=== PATIENT | female | born 1940 | race Caucasian/White ===

== ENCOUNTER → 2017-05-30 | Day surgery (SDC) | payer MEDICARE, OTHER ==
[~2017-05-30] MED LIST: APIX5TAB PO; ASPI81CH CHEW; BENA25CA4; DILA2TAB2 PO; HUMA50IN SQ; HYDR12.56 PO; LEVO.125 PO; LYRI100C PO; MEPERIDINE HCL 25 MG/ML VIAL IV ONE; METO100T9 PO; PROPOFOL 200 MG/20 ML AMP IV ONE; SODIUM CHLORIDE 0.9% 10 ML VIAL ONE
--- NOTE | 2017-05-31 22:53 | M6 ---
cc: Manisha QUIROS DATE 05/30/2017 1940 PROCEDURE Fluoroscopically guided injection neurolytic substance bilateral sacroiliac joints (3% phenol 1.5 mL) History and physical was completed and signed. Consent was signed. Procedure site was marked. Medications were listed and reconciled. Pain score was recorded. Allergies were noted. Time out was taken. Fluoroscopy time was recorded where applicable. Sedation was administered or directed by Dr. Quiros. The patient was given oxygen. The patient was monitored by a registered nurse. Total procedure time was greater than 15 minutes. IV was started, blood pressure cuff, pulse oximeter and EKG were applied. The patient was placed in the prone position on a Jovany table sedated with small amounts of propofol titrated to effect. Vital signs were monitored and remained stable throughout the procedure. Sacral area was prepped with alcohol and 10% Betadine solution and draped with sterile drapes. Fluoroscopy was used shooting from medial to lateral to clearly visualize the posterior joint line of the bilateral sacroiliac joints. Separate sterile 5-inch 22-gauge spinal needles were advanced into these joints under fluoroscopic guidance. There was negative aspiration for blood or any other type of fluid. At each location, the patient was given 1.5 mL of 3% phenol. Following this, the patient was taken to the recovery room with stable vital signs neurologically intact. MD MORGAN Loving/ /9:08 AM /10:52 PM
== END | disposition home or self-care (01) ==
LOC: PHSDC 07:18
PROVIDERS: ATTEND Pain Medicine Interventional Pain Medicine
DX: M54.5 Low back pain (principal)
CPT/HCPCS: 64640; 99152; J2175

== ENCOUNTER 2018-01-07 09:20 | Day surgery (SDC) | payer MEDICARE, OTHER ==
[~2018-01-07] VITALS: Ht 162.6 cm; Wt 117.5 kg
[~2018-01-07 09:20] MED LIST changes: +ASPI-516 CHEW; -ASPI81CH CHEW; -BENA25CA4; -DILA2TAB2 PO; +DULO1CAP3 PO; +EXENINJ SQ; -MEPERIDINE HCL 25 MG/ML VIAL IV ONE; -METO100T9 PO; +METO1TAB43 PO; +PRAV20TA2 PO; -PROPOFOL 200 MG/20 ML AMP IV ONE; -SODIUM CHLORIDE 0.9% 10 ML VIAL ONE; +VITA2000 PO
[2018-01-07] MEDS ORDERED: IOHEXOL 350 MG/ML 100 ML BTL (for Cath Lab) OTHER ONE (09:21)
[2018-01-07 10:15] VITALS: BP 120/68; PULSE 72; RESP 18; TEMP 97.6; O2SAT 95
[2018-01-07 10:29] LABS: AUTOMATED NEUTROPHIL # 7.1 TH/MM3 (1.8-7.7); BASOPHIL % 0.4 % (0.0-2.0); EOSINOPHIL # 0.1 TH/MM3 (0-0.4); EOSINOPHIL % 0.8 % (0.0-4.0); HEMATOCRIT 39.4 % (35.0-46.0); HEMOGLOBIN 13.1 GM/DL (11.6-15.3); LYMPH % 17.3 % (9.0-44.0); LYMPHOCYTE # 1.7 TH/MM3 (1.0-4.8); MEAN CELL VOLUME 89.9 FL (80.0-100.0); MEAN CORPUSCULAR HEMOGLOBIN 29.9 PG (27.0-34.0); MEAN CORPUSCULAR HGB CONC 33.3 % (32.0-36.0); MEAN PLATELET VOLUME 9.1 FL (7.0-11.0); MONO % 10.2 % (0.0-8.0); NEUT % 71.3 % (16.0-70.0); PLATELET COUNT 284 TH/MM3 (150-450); RED BLOOD COUNT 4.38 MIL/MM3 (4.00-5.30); RED CELL DISTRIBUTION WIDTH 14.4 % (11.6-17.2); WHITE BLOOD COUNT 9.9 TH/MM3 (4.0-11.0)
[2018-01-07 10:38] LABS: PROTHROMBIN TIME - PATIENT 10.2 SEC (9.8-11.6)
[2018-01-07] MEDS ORDERED: SODIUM CHLOR 0.9% 1000 ML INJ 1,000 ML IV SCH ×2 (10:45→18:00)
[2018-01-07] MEDS ORDERED: HYDROmorphone HCL PF 2 MG/ML VIAL IV PUSH ONE (11:15)
[2018-01-07 11:29] LABS: BICARBONATE 27.5 MEQ/L (21.0-32.0); CREATININE 1.28 MG/DL (0.50-1.00)
[2018-01-07] MEDS ORDERED: MIDAZOLAM HCL 2 MG/2 ML VIAL ONE (15:49)
[2018-01-07] MEDS ORDERED: HEPARIN-NS/PF FLUSH BAG 1,000 ML IV FLUSH ONE (15:50)
[2018-01-07] MEDS ORDERED: HYDROmorphone HCL PF 2 MG/ML VIAL ONE (15:54)
[2018-01-07] MEDS ORDERED: HEPARIN SODIUM - IV 10,000 UNITS/10 ML VIAL ONE (16:31)
[2018-01-07] MEDS ORDERED: CLOPIDOGREL 300 MG TAB ONE (16:58)
[2018-01-07] MEDS ORDERED: ONDANSETRON HCL 4 MG/2 ML VIAL ONE (17:08)
--- NOTE | 2018-01-07 17:28 | CATHPROC ---
[email or web address] HIS Report Study Information Study Number Admission Scheduled Start Study Start [id number] Jan 07 2018 9:20AM 01/07/2018 Jan 07 2018 3:30PM [place] Service Cath Endovascular Study Admit Source Facility Department Other [facility] - Molding Manager Physician and Clinical Staff Initial MD Shetty, Ant Pest Controller Miley Claudio,RAHAT Recorder Frida, Yaa,RED HAT ENGINEER TECH2 Scrub Cindy, Gareth,RT(R) Procedures Performed Procedure Location (Site) Vessel Name Angiogram (manual) Fem Sup. (right) Femoral Art Angiogram (manual) Popliteal R (R10) Popliteal SLOT MACHINE FLOOR PERSON Fem Sup. (left) Femoral Art Wire insertion Fem Art (right) Femoral Art Equipment Time Archives Director Description Size Mfg Part Number Used/Scraped [id number] 15:35 ANGIO-DYNAMICS OMNI FLUSH 65CM CATHETER FR 5 Used *[id number] BALLOON, 6.0 40MM [id number] 16:42 ANGIOSCORE INC. 6.0 40MM Used ANGIOSCULPT 137CM *[id number] INTRODUCER SET, 15:35 [employer]. FR 5 [id number] *[id number] Used MICROPUNCTURE, STIFFENED [id number] 16:59 DAIG/[employer]. YOUNG [employer]ICAL ANGIOSEAL, FR6 VIP FR 6 Used *[id number] BALLOON, ADMIRAL EXTREME 6 [id number] 16:49 [employer] 130CM Used X 120 130CM *[id number] CATHETER, FR5 TRAILBLAZER [id number] 16:37 [employer] 135CM Used .035 *[id number] 16:38 MALLINCKRODT SYRINGE, ANGIOMAT 150ML 150ML *[id number] Used 2SUB 16:41 [employer] WIRE, CONTROL V-18 300CM 72912 *[id number] Used [id number] 15:35 iRx Reminder IND[employer]ES PACK, CCL CUSTOM * Used *[id number] 16:58 Qian Xiao'er 30 ANN INDEFLATOR Used *[id number] 16:19 Qian Xiao'er PRESSURE TUBING 48" 48" [id number] 15:35 NYCOMED OMNIPAQUE, 300 MG, 150ML 150ML [id number] Used 15:35 [employer]ED OMNIPAQUE, 300 MG, 150ML 150ML [id number] Used [id number] 15:35 TERUMO MEDICAL SHEATH, FR5 TERUMO (10CM) FR 5 Used *[id number] 16:54 [employer]ICAL SHEATH, FR6 TERUMO (10CM) FR 6 Used *[id number] SHEATH, FR6 PINNACLE [id number] 16:34 TERUMO MEDICAL/CONG FR 6 Used DESTINATION 45CM *[id number] WIRE, ANGLE GLIDE STIFF .035 [id number] 16:36 TERUMO MEDICAL/CONG 260CM Used 260CM *[id number] WIRE, ANGLED GLIDE .035 [id number] 16:18 TERUMO MEDICAL/CONG 260CM Used 260CM *[id number] History: Allergies Allergy Reaction codeine Nausea/Vomiting morphine HALLUCINATIONS Phenergan Tachycardia promethazine Tachycardia History: Risk Factors Hypertension Dyslipidemia Previous RI Previous Heart Failure Yes Yes Yes Yes Prior PCI Yes Cerebrovascular Peripheral Artery Diabetes Disease Disease Yes Yes Yes History: Arrhythmias Selection Items Atrial fibrillation Labs Hgb (g/dl) Hct (%) RBC (MIL/MM3) WBC (l/cumm) Platelets (thousands) 11.60-17.00 35.00-51.00 4.00-5.90 4.00-11.00 150.00-450.00 13.1 39.4 4.3 9.9 284 Glucose (mg/dl) BUN (mg/dl) Creatinine (mg/dl) BUN:Creatinine (1:x) 74.00-106.00 7.00-18.00 0.50-1.30 10.00-20.00 179 21 1.2 17.5 Na (meq/l) K (meq/l) Cl (meq/l) CO2 (mmol/L) Ca (mg/dl) 136.00-145.00 3.50-5.10 98.00-107.00 21.00-32.00 8.50-10.10 137 3.5 101 27.5 9 PT (sec) INR (PTT:PT) 9.80-11.60 0.90-1.10 10.2 1 CPK-MB (ng/ML) 0.50-3.60 Not Drawn Medication Medication Total Dose (Bolus/Oral) Medication Total Dosage/Unit 1% XYLOCAINE 20 mL Dilaudid 1 mg HEPARIN 8300 units PLAVIX 600 mg VERSED 1 mg ZOFRAN 4 mg Medications (Bolus/Oral) Medication Time Given Dosage/Unit Administered By Reason Dilaudid 01/07/2018 3:57:49 PM 0.5 mg Hesher, Miley 0.5 mg Dilaudid given in lab by Miley Claudio RN in Left Forearm via Peripheral IV. Ordered by Ant Birch VERSED 01/07/2018 4:06:59 PM 0.5 mg Hesher, Miley 0.5 mg VERSED given in lab by Miley Claudio RN in Left Forearm via Peripheral IV. Ordered by Ant Boone Dilaudid 01/07/2018 4:07:08 PM 0.5 mg Hesher, Miley 0.5 mg Dilaudid given in lab by Miley Claudio RN in Left Forearm via Peripheral IV. Ordered by Ant Birch 1% XYLOCAINE 01/07/2018 4:08:58 PM 20 mL Ant Shetty 20 mL 1% XYLOCAINE given in lab by Ant Shetty in Right Groin via Subcutaneous. Ordered by Ant Lundy VERSED 01/07/2018 4:24:16 PM 0.5 mg Hesher, Miley 0.5 mg Dilaudid given in lab by Miley Claudio RN in Left Forearm via Peripheral IV. Ordered by Ant Birch HEPARIN 01/07/2018 4:33:54 PM 8300 units Hesher, Miley 8300 units HEPARIN given in lab by Miley Claudio RN in Left Forearm via Peripheral IV. Ordered by Ant Fitzpatrick ZOFRAN 01/07/2018 5:11:06 PM 4 mg Hesher, Miley 4 mg ZOFRAN given in lab by Miley Claudio RN in Left Forearm via Central IV. Ordered by Earl Shetty PLAVIX 01/07/2018 5:14:24 PM 600 mg González, Miley 600 mg PLAVIX given in lab by Miley Claudio RN via Oral. Ordered by Ant Shetty Medication (Drip) Medication Time Given Dosage/Unit Concentration/Unit Diluent (ml) Solution IV Solutions 01/07/2018 3:43:09 PM 0 mL (IV) 500 NaCl .9 Patient arrived on IV Solutions in Left Forearm via Peripheral IV. Pump/Drip Flow = 20 ml/hr using Na Cl .9. Ordered by Ant Shetty Initial Case Assessment Cardiovascular HR Rhythm NIBP Chest Pain 75 nsr 151/79 0 Edema Present Skin color Skin None Normal Warm Dry Circulatory - Right Pulses Dorsalis Pedis Posterior Tibial Femoral d d 1 Scale (0,1,2,3,4,d) Circulatory - Left Pulses Dorsalis Pedis Posterior Tibial Femoral d d 1 Scale (0,1,2,3,4,d) Neurological State Oriented to time-place- Alert Moves all extremities person Respiration - General Respiration Rate SpO2 (%) (B/min) 15 97 Final Case Assessment Cardiovascular HR Rhythm NIBP Chest Pain 76 sr 108/46 0 Edema Present Skin color Skin None Normal Warm Dry Circulatory - Right Pulses Dorsalis Pedis Posterior Tibial Femoral d d 1 Scale (0,1,2,3,4,d) Circulatory - Left Pulses Dorsalis Pedis Posterior Tibial Femoral d d 1 Scale (0,1,2,3,4,d) Circulatory - Lower Extremities Color Lower Right Color Lower Left Normal Normal Neurological State Oriented to time-place- Alert Moves all extremities person Respiration - General Respiration Rate SpO2 (%) O2 (lpm) (B/min) 14 94 2 Chronological Log Time Study Chronological Log 15:35:30 Patient arrived via Bed with blanchard catheter in place. 15:35:43 Patient Name, D.O.B, / Armband Verified By R.N. 15:36:28 Pre-op and post- op instructions given; patient acknowledges understanding of instructions. 15:40:37 Verbal Stimulation=2 Physical Stimulation=2 Airway=2 Respiration=2 TOTAL=8. (0=absent, 1=li mited, 2=present) Vitals capture started with the following parameters, Patient=Adult, Interval=5 min, Initial Pr iqxgeq=305 mmHg, 15:41:57 Deflation Rate=5 mmHg, Cuff placed on Right Ankle 15:42:56 Presedation assessment performed by Molding Manager RN. 15:42:59 Patient has been NPO for More than 6Hrs. 15:43:01 Skin Breakdown- rash right foot 15:43:05 Patient Warmer Placed on the Table. 15:43:08 A # 20 IV was noted in the Forearm (left). Grade = patent Patient arrived on IV Solutions in Left Forearm via Peripheral IV. Pump/Drip Flow = 20 ml/hr us ing NaCl .9. Ordered by 15:43:09 Ant Shetty 15:43:11 History and physical on the chart or being dictated. 15:43:17 HR=85 bpm, HECH=486/79 mmhg, SpO2=98.0 %, Resp=15 B/min, Pain=0, Mari=10, Collazo=2 Assessment: Initial Case, HR=75 BPM, Rhythm=nsr, UVYF=070/79 mmhg, Chest Pain=0, Edema=None, Co nayana=Normal, Skin = Warm, Dry Right Pulses: Wilfred Ped=d, Post Tib=d, Femoral=1 15:46:07 Left Pulses: Wilfred Ped=d, Post Tib=d, Femoral=1 Neurological: State=Alert, Ox3, JOY Respiration: Resp=15 B/min, SpO2=97 % 15:46:30 Reference ECG taken 15:47:33 HR=75 bpm, BSWG=156/79 mmhg, SpO2=98.0 %, Resp=12 B/min, Pain=0, Mari=10, Collazo=2 15:52:28 HR=78 bpm, LIED=606/76 mmhg, SpO2=97.0 %, Resp=11 B/min, Pain=0, Mari=10, Collazo=2 15:56:13 Bilateral groins prepped with 2% chlorhexidine, and draped after a 3 minute waiting time. 15:56:17 MD arrived. 15:56:20 Contrast Scanned 15:56:20 Immediate Presedation assesment performed by physician. 15:57:27 HR=82 bpm, WCUM=525/74 mmhg, SpO2=95.0 %, Resp=10 B/min, Pain=0, Mari=10, Collazo=2 15:57:49 0.5 mg Dilaudid given in lab by Miley Claudio RN in Left Forearm via Peripheral IV. Order ed by Ant Shetty 16:02:33 HR=83 bpm, WZES=287/64 mmhg, SpO2=97.0 %, Resp=14 B/min 16:02:58 Pressure channel 1 zeroed. Time Out. Correct patient, correct procedure, correct physician, power injector loaded with con trast with surgical team 16:06:05 present. Time Out Concurred by MD and individual staff in procedure. 16:06:59 0.5 mg VERSED given in lab by Miley Claudio, RAHAT in Left Forearm via Peripheral IV. Ordered by Ant Shetty 16:07:08 0.5 mg Dilaudid given in lab by Miley Claudio, RN in Left Forearm via Peripheral IV. Order ed by Ant Shetty 16:07:32 HR=82 bpm, BZTO=440/45 mmhg, SpO2=95.0 %, Resp=15 B/min 16:08:55 Case Start 20 mL 1% XYLOCAINE given in lab by Ant Shetty in Right Groin via Subcutaneous. Ordered by Diogenes 16:08:58 Ant Breaux 16:12:31 HR=72 bpm, YJNB=173/50 mmhg, SpO2=95.0 %, Resp=13 B/min 16:14:57 Access site was Right Femoral Artery. Ultrasound used A INTRODUCER SET, MICROPUNCTURE, STIFFENED FR 5 was advanced into the Fem Art (right) using the 16:16:20 Percutaneous technique. A SHEATH, FR5 TERUMO (10CM) FR 5 was exchanged in the Fem Art (right). This was necessary in or leonid to 16:16:27 accomodate a larger catheter. 16:16:43 An injection in the Fem Art (right) was made through the SHEATH, FR5 TERUMO (10CM) FR 5. 16:17:30 HR=73 bpm, NIBP=97/47 mmhg, SpO2=94.0 %, Resp=13 B/min Recorded Pressure: RFA, HR=72, Condition=Condition 1 16:19:18 (Right Femoral Artery) RFA 109/62/78 16:19:55 Fem Sup. (right) angiogram, manually injected. 16:21:18 Popliteal R (R10) angiogram, manually injected. 16:22:29 HR=75 bpm, NIBP=94/51 mmhg, SpO2=94 %, Resp=20 B/min 16:24:16 0.5 mg Dilaudid given in lab by Miley Claudio, RN in Left Forearm via Peripheral IV. Order ed by Ant Shetty 16:25:26 A WIRE, ANGLED GLIDE .035 260CM 260CM was inserted via Fem Art (right). A OMNI FLUSH 65CM CATHETER FR 5 was advanced over a wire. OMNIPAQUE, 300 MG, 150ML 150ML was us ed for 16:25:32 injections. 16:27:09 Left iliac cannulated. 16:27:28 HR=75 bpm, NIBP=90/53 mmhg, Resp=14 B/min 16:27:53 Wire removed 16:29:43 Through a OMNI FLUSH 65CM CATHETER FR 5, The Iliac L. Com. (L4) was injected with 5 cc's of contrast. 16:32:27 HR=74 bpm, TFSC=654/62 mmhg, SpO2=93.0 %, Resp=12 B/min 16:33:14 Catheter was removed A SHEATH, FR6 PINNACLE DESTINATION 45CM FR 6 was exchanged in the Fem Art (right). This was nec essary in 16:33:23 order to accomodate a larger catheter. 8300 units HEPARIN given in lab by Miley Claudio, RN in Left Forearm via Peripheral IV. Ordere d by Ant Shetty 16:33:54 G. A WIRE, ANGLE GLIDE STIFF .035 260CM 260CM was inserted via Fem Art (right). Advanced up and ov er to the left 16:35:44 iliac. A CATHETER, FR5 TRAILBLAZER .035 135CM was advanced over a wire. OMNIPAQUE, 300 MG, 150ML 150ML was 16:36:23 used for injections. 16:37:34 HR=74 bpm, NIBP=86/48 mmhg, SpO2=95 %, Resp=18 B/min 16:38:13 NIBP STAT measurement started. 16:38:42 HR=72 bpm, NIBP=97/42 mmhg, SpO2=94 %, Resp=20 B/min 16:39:59 The previous wire was exchanged for a WIRE, CONTROL V-18 300CM. 16:40:05 Catheter was removed A BALLOON, 6.0 40MM ANGIOSCULPT 137CM 6.0 40MM was inserted over WIRE, CONTROL V-18 300CM via t he Fem 16:40:17 Sup. (left). 16:42:19 In the Fem Sup. (left) a BALLOON, 6.0 40MM ANGIOSCULPT 137CM 6.0 40MM was inflated to 10 at ms for 30 seconds. 16:42:31 HR=74 bpm, NIBP=85/52 mmhg, SpO2=94.0 %, Resp=8 B/min 16:42:35 In the Fem Sup. (left) a BALLOON, 6.0 40MM ANGIOSCULPT 137CM 6.0 40MM was inflated to 10 at ms for 30 seconds. 16:43:11 In the Fem Sup. (left) a BALLOON, 6.0 40MM ANGIOSCULPT 137CM 6.0 40MM was inflated to 10 at ms for 30 seconds. 16:45:31 Balloon Removed. A BALLOON, ADMIRAL EXTREME 6 X 120 130CM 130CM was inserted over WIRE, CONTROL V-18 300CM via t he Fem 16:46:47 Sup. (left). 16:48:09 HR=72 bpm, NIBP=95/56 mmhg, SpO2=94.0 %, Resp=8 B/min 16:49:40 In the Fem Sup. (left) a BALLOON, ADMIRAL EXTREME 6 X 120 130CM 130CM was inflated to 8 ann s for 180 seconds. 16:51:53 Balloon Removed. 16:52:12 Wire removed 16:52:31 HR=76 bpm, YGZW=217/57 mmhg, SpO2=92.0 %, Resp=12 B/min, Pain=0, Mari=10, Collazo=2 16:53:28 Catheter was removed A SHEATH, FR6 TERUMO (10CM) FR 6 was exchanged in the Fem Art (right). This was necessary in or leonid to minimize 16:54:31 site leakage. 16:57:36 HR=73 bpm, VIOW=872/43 mmhg, SpO2=93.0 %, Resp=11 B/min, Pain=0, Mari=10, Collazo=2 16:58:55 ANGIOSEAL, FR6 VIP FR 6 placement in the Fem Art (right) Assessment: Final Case, HR=76 BPM, Rhythm=sr, GZEE=496/46 mmhg, Chest Pain=0, Edema=None, Color =Normal, Skin = Warm, Dry Right Pulses: Wilfred Ped=d, Post Tib=d, Femoral=1 Left Pulses: Wilfred Ped=d, Post Tib=d, Femoral=1 17:00:27 Lower Right Extremities: Color=Normal Lower Left Extremities: Color=Normal Neurological: State=Alert, Ox3, JOY Respiration: Resp=14 B/min, SpO2=94 %, O2=2 lpm 17:02:13 Sterile dressing applied to site 17:02:15 No case complications noted. 17:02:16 Cine recording checked. 17:02:20 Holding Area notified of successful intervention. 17:02:21 Bedside Report will be given. 17:02:35 HR=75 bpm, BWSI=995/46 mmhg, SpO2=94.0 %, Resp=11 B/min, Pain=0, Mari=10, Collazo=2 17:07:21 Vitals capture stopped. 17:10:57 Patient moved to stretcher 17:11:06 4 mg ZOFRAN given in lab by Miley Claudio, RAHAT in Left Forearm via Central IV. Ordered by Ant Shetty 17:14:24 600 mg PLAVIX given in lab by Miley Claudio, RN via Oral. Ordered by Ant Shetty 17:59:40 Case End End Study - Contrast Media Used In Study Contrast Total Opened (mL) Total Used (mL) Total Wasted (mL) Omnipaque 100 100 0 End Study - Maximum Contrast Load Max Contrast Load (mL) 491.7 End Study - Radiation Exposure Fluoro Time (minutes) 6.6 End Study - Patient Disposition Complications Transferred To Interventional Outcome No Molding Manager Holding successful
[2018-01-07] MEDS ORDERED: MISC INFORMATION XX ONE (18:00)
[2018-01-07] MEDS ORDERED: ONDANSETRON HCL 4 MG/2 ML VIAL IV PUSH PRN (18:15)
[2018-01-07 20:00] VITALS: PULSE 74
[2018-01-07 21:00] VITALS: PULSE 74
[2018-01-07] MEDS ORDERED: METOPROLOL SUCCINATE 50 MG PO SCH (21:00)
[2018-01-07] MEDS ORDERED: PRAVASTATIN SOD 20 MG TAB PO SCH (21:00)
[2018-01-07] MEDS: METOPROLOL SUCCINATE 50 MG EXTENDED RELEASE TAB PO SCH (21:00)
[2018-01-07] MEDS: PREGABALIN 100 MG CAP PO SCH (21:00)
[2018-01-07 22:00] VITALS: PULSE 76
[2018-01-07 23:00] VITALS: PULSE 78
[2018-01-07] MEDS ORDERED: CLOPIDOGREL 300 MG TAB PO ONE (23:00)
[2018-01-07] MEDS ORDERED: PROMETHAZINE HCL 25 MG TAB PO PRN (23:00)
[2018-01-08] VITALS: PULSE 78
[2018-01-08] MEDS: HYDROmorphone HCL PF 2 MG/ML VIAL IV PRN ×2 (00:21→10:10)
[2018-01-08 01:00] VITALS: PULSE 86
[2018-01-08] MEDS ORDERED: LEVOTHYROXINE SODIUM 125 MCG TAB PO SCH (06:00)
[2018-01-08 06:14] LABS: AUTOMATED NEUTROPHIL # 9.3 TH/MM3 (1.8-7.7); BASOPHIL # 0.1 TH/MM3 (0-0.2); BASOPHIL % 0.5 % (0.0-2.0); EOSINOPHIL # 0.1 TH/MM3 (0-0.4); EOSINOPHIL % 0.8 % (0.0-4.0); HEMATOCRIT 38.9 % (35.0-46.0); HEMOGLOBIN 12.7 GM/DL (11.6-15.3); LYMPH % 15.6 % (9.0-44.0); MEAN CELL VOLUME 90.4 FL (80.0-100.0); MEAN CORPUSCULAR HEMOGLOBIN 29.6 PG (27.0-34.0); MEAN CORPUSCULAR HGB CONC 32.7 % (32.0-36.0); MEAN PLATELET VOLUME 9.3 FL (7.0-11.0); MONO % 8.9 % (0.0-8.0); MONOCYTE # 1.1 TH/MM3 (0-0.9); NEUT % 74.2 % (16.0-70.0); PLATELET COUNT 278 TH/MM3 (150-450); RED CELL DISTRIBUTION WIDTH 14.4 % (11.6-17.2); WHITE BLOOD COUNT 12.5 TH/MM3 (4.0-11.0)
[2018-01-08 06:35] LABS: CALCIUM 9.1 MG/DL (8.5-10.1); CREATININE 1.35 MG/DL (0.50-1.00)
[2018-01-08] MEDS ORDERED: [UNRECOGNIZED DRUG - OTHER] SQ SCH (07:00)
[2018-01-08 08:00] VITALS: BP 145/88; PULSE 78; RESP 22; TEMP 98.3; O2SAT 96
[2018-01-08] MEDS ORDERED: ASPIRIN 81 MG CHEW TAB CHEW SCH (09:00)
[2018-01-08] MEDS ORDERED: CLOPIDOGREL 75 MG TAB PO SCH (09:00)
[2018-01-08] MEDS: PREGABALIN 100 MG CAP PO SCH (10:07)
[2018-01-08] MEDS: METOPROLOL SUCCINATE 50 MG EXTENDED RELEASE TAB PO SCH (10:08)
[2018-01-08 10:40] VITALS: RESP 18
[2018-01-08] MEDS ORDERED: PLAV75TA29 PO (10:50)
--- NOTE | 2018-01-08 13:45 | PD.CARD.PN ---
Subjective Subjective Remarks Chronic back pain Lower extremity pain less than before Objective Medications Current Medications Medications (Trade) Dose Ordered Sig/Isma Route Start Time Stop Time Status Last Admin Sodium Chloride 1,000 ml @ 30 mls/hr Q24H IV 01/07/18 10:45 01/09/18 10:44 (Plavix) 75 mg DAILY PO 01/08/18 09:00 01/08/18 10:08 (Aspirin Chew) 81 mg DAILY CHEW 01/08/18 09:00 01/08/18 10:07 (Synthroid) 125 mcg DAILY@0600 PO 01/08/18 06:00 (Pravachol) 20 mg HS PO 01/07/18 21:00 (Lyrica) 100 mg BID PO 01/07/18 21:00 01/08/18 10:07 Patient Own Medication PT OWN MED: (Insulin Lispro Protamine-Lis... BIDAC SQ 01/08/18 07:00 Future Hold (Roxicodone) 5 mg Q6H PRN PO 01/07/18 18:15 (Roxicodone) 10 mg Q6H PRN PO 01/07/18 18:15 01/08/18 05:26 (Zofran Inj) 4 mg Q6HR PRN IV PUSH 01/07/18 18:15 01/07/18 21:52 (Toprol Xl) 50 mg BID PO 01/07/18 21:00 01/08/18 10:08 (Phenergan) 50 mg Q4H PRN PO 01/07/18 23:00 (Dilaudid Pf Inj) 2 mg UNSCH X1 PRN IV 01/08/18 00:15 01/09/18 12:00 01/08/18 10:10 Vital Signs / I&O Vital Signs Date Time Temp Pulse Resp B/P (MAP) Pulse Ox O2 Delivery O2 Flow Rate FiO2 01/08/18 10:40 18 01/08/18 10:40 18 01/08/18 08:00 98.3 78 22 145/88 (107) 96 01/08/18 08:00 78 01/08/18 06:35 16 01/08/18 01:00 86 01/08/18 00:00 78 01/07/18 23:00 78 01/07/18 22:00 76 01/07/18 21:00 74 01/07/18 20:00 74 01/07/18 17:25 92 Nasal Cannula 2.00 I/O 01/07/18 01/07/18 01/07/18 01/08/18 01/08/18 01/08/18 07:00 15:00 23:00 07:00 15:00 23:00 Intake Total 480 ml Output Total 250 ml Balance 230 ml Intake Oral 480 ml Output Urine Total 250 ml Physical Exam GENERAL: AAOx3 SKIN: Warm and dry. HEAD: Atraumatic. Normocephalic. EYES: Pupils equal and round. No scleral icterus. No injection or drainage. ENT: No nasal bleeding or discharge. Mucous membranes pink and moist. NECK: Trachea midline. No JVD. CARDIOVASCULAR: Regular rate and rhythm. RESPIRATORY: No accessory muscle use. Clear to auscultation. Breath sounds equal bilaterally. GASTROINTESTINAL: Abdomen soft, non-tender, nondistended. Hepatic and splenic margins not palpable. MUSCULOSKELETAL: Extremities with bilateral chronic edema. Right groin no hematoma. Distal pulses intact NEUROLOGICAL: Awake and alert. No obvious cranial nerve deficits. Motor grossly within normal limits. Five out of 5 muscle strength in the arms and legs. Normal speech. PSYCHIATRIC: Appropriate mood and affect; insight and judgment normal. Laboratory Laboratory Tests Test 01/08/18 04:31 White Blood Count 12.5 TH/MM3 Red Blood Count 4.30 MIL/MM3 Hemoglobin 12.7 GM/DL Hematocrit 38.9 % Mean Corpuscular Volume 90.4 FL Mean Corpuscular Hemoglobin 29.6 PG Mean Corpuscular Hemoglobin Concent 32.7 % Red Cell Distribution Width 14.4 % Platelet Count 278 TH/MM3 Mean Platelet Volume 9.3 FL Neutrophils (%) (Auto) 74.2 % Lymphocytes (%) (Auto) 15.6 % Monocytes (%) (Auto) 8.9 % Eosinophils (%) (Auto) 0.8 % Basophils (%) (Auto) 0.5 % Neutrophils # (Auto) 9.3 TH/MM3 Lymphocytes # (Auto) 2.0 TH/MM3 Monocytes # (Auto) 1.1 TH/MM3 Eosinophils # (Auto) 0.1 TH/MM3 Basophils # (Auto) 0.1 TH/MM3 CBC Comment DIFF FINAL Differential Comment Blood Urea Nitrogen 20 MG/DL Creatinine 1.35 MG/DL Random Glucose 198 MG/DL Calcium Level 9.1 MG/DL Sodium Level 138 MEQ/L Potassium Level 3.8 MEQ/L Chloride Level 100 MEQ/L Carbon Dioxide Level 31.0 MEQ/L Anion Gap 7 MEQ/L Estimat Glomerular Filtration Rate 38 ML/MIN Assessment and Plan Problem List: (1) PAD (peripheral artery disease) ICD Codes: I73.9 - Peripheral vascular disease, unspecified (2) Claudication ICD Codes: I73.9 - Peripheral vascular disease, unspecified (3) Atrial fibrillation ICD Codes: I48.91 - Atrial fibrillation Status: Acute (4) Nausea & vomiting ICD Codes: R11.2 - Nausea & vomiting Status: Acute (5) Obstructive jaundice ICD Codes: K83.8 - Obstructive jaundice Status: Acute (6) Diabetes ICD Codes: E11.9 - Diabetes Status: Acute Assessment and Plan 1) PAD/Claudication s/p Angiosculpt and HARRY ISR of left SFA 2) AFib 3) Chronic back pain Follow up with pain management 4) Cardiovascularly stable for discharge ASA/Plavix/Eliquis for 1 month then back to ASA/Eliquis Ant Shetty DO Jan 08, 2018 13:45
--- NOTE | 2018-01-08 19:56 | EKG ---
Date Performed: 01/07/2018 Time Performed: 10:33:00 PTAGE: 77 years EKG: Probable normal Sinus rhythm Inferior infarct - age undetermined Nonspecific ST-T changes may be due to myocardial ischemia Basel ine artifact. Likely no significant change from previous tracing. Abnormal ECG PREVIOUS TRACING : 09/20/2014 18.12 DOCTOR: Elsy Bain Interpretating Date/Time 01/08/2018 19:55:37
--- NOTE | 2018-01-09 11:18 | MA ---
cc: ANT KANG DO DATE 01/07/2018 PROCEDURE Bilateral lower extremity peripheral angiogram, in-stent restenosis left SFA status post AngioSculpt balloon and drug-eluting balloon (6 x 120) therapy, ultrasound-guided access, femoral closure with Angio-Seal, moderate sedation 55 minutes. PREPROCEDURE DIAGNOSIS Claudication with left greater than right pain, peripheral artery disease, abnormal CTA with runoff. POSTPROCEDURE DIAGNOSIS Mild to moderate peripheral artery disease on the right lower extremity with three-vessel runoff, left lower extremity in-stent restenosis of SFA stent status post AngioSculpt and drug-eluting balloon therapy, distally two-vessel runoff. MEDICATIONS 1. Versed 0.5 mg. 2. Dilaudid 2 mg. 3. Heparin 8300 units. 4. Plavix 600 mg. 5. Zofran 4 mg. CONTRAST 100 cc FLUOROSCOPY 6.6 minutes ANESTHESIA Moderate sedation 55 minutes ESTIMATED BLOOD LOSS 10 cc PROCEDURAL SUMMARY Papa Tripp is a pleasant 77-year-old female who sees my partner Dr. Ramírez in the office and underwent CTA which showed significant possible disease in the right iliac, as well as in-stent restenosis of the left SFA. Because of this, she was recommended peripheral angiogram. In discussion with her, the risks, benefits and alternatives were explained to her and she consented as such. She was brought to lab and prepped in the usual sterile fashion. Right femoral artery was accessed using modified Seldinger technique as well as ultrasound guidance and placement of a 5-[place] sheath. This was easily aspirated and flushed. An angiogram of right [employer] runoff was done as well as distal DSA for the [id number] vessels. Angiogram was then done through the sheath for the right iliac. At this time, an Omni flush was taken up over the bifurcation of the iliacs with a Glidewire. This was used for angiography of the left lower extremity to the distal vessels. Because of the significance of disease with in-stent restenosis, as well as the patient's symptoms, I felt that the left SFA should be intervened on. At this time, a stiff glide wire was placed into the distal SFA. The Omni flush was removed. The 5-[place] sheath was removed and replaced with a 6 x 45 destination sheath. The patient was given heparin as an anticoagulant. A Trailblazer was then taken over the Glidewire and the Glidewire was exchanged for a V18. An AngioSculpt (6 x 40) was then used throughout the low stent for predilation. A drug-eluting [place] (6 x 120) was then used to cross the distance of the stent. Final angiogram shows no significant post stenosis with two-vessel runoff as before. Wire was removed. Destination sheath was then exchanged for a short 6-[place] with a repeat angiogram to visualize the bifurcation. At this point, an Angio-Seal was used for femoral arteriotomy closure. The patient left the radiographer cardiac catheterization cardiovascularly stable. FINDINGS Right lower extremity: Right iliac shows no significant disease. Right [employer] with no significant disease. Right SFA has mild to moderate disease throughout the midportion of up to 50%. Distal [id number] appears to have three-vessel runoff to the ankle. Left lower extremity: Left iliac with no significant disease. No significant disease throughout the [employer]. Left SFA stent has 80% restenosis. Distal to this, there is no significant disease. [id number]-ool-[id number], it appears that the anterior tibial probably occludes and there is two-vessel runoff to the ankle. IMPRESSION 1. Claudication left greater than right. 2. Peripheral artery disease as above, status post AngioSculpt and drug-eluting balloon therapy to left SFA in-stent restenosis. RECOMMENDATIONS 1. Ms. Tripp underwent PCI as above. She will be placed on aspirin and Plavix therapy. 2. Due to her atrial fibrillation, she will be continued on aspirin, Eliquis and Plavix therapy for one month and at that time Plavix can be stopped and she can be continued on her aspirin and Eliquis. 3. She will be watched overnight and if stable in the morning, discharged home for followup with Dr. Ramírez. Thank you for allowing me to see Papa Tripp. If there are any questions, please do not hesitate to call. Ant Kang DO VGP/DJL /11:27 PM /10:52 AM
== END 2018-01-08 15:14 | disposition home or self-care (01) ==
LOC: HDOC 09:20 → HDIC 09:21 → HCIS 19:15 → HDOC 01-08 15:14
PROVIDERS: ATTEND Nuclear Medicine Nuclear Cardiology
DX: I70.213 Atherosclerosis of native arteries of extremities with intermittent claudication, bilateral legs (principal); I48.91 Unspecified atrial fibrillation; I10 Essential (primary) hypertension; E11.9 Type 2 diabetes mellitus without complications; Z79.82 Long term (current) use of aspirin; Z79.02 Long term (current) use of antithrombotics/antiplatelets
CPT/HCPCS: 36247; 37224; 75625; 75716; 80048; 85025; 85610; 85730; 93005; 99152; 99153; C1725; C1751; C1769; C1893; C2623; G0269; J1170; J1644; J2250; J2405; J3010; Q9967

== ENCOUNTER 2018-03-29 07:47 | Inpatient (IN) | payer MEDICARE, OTHER ==
[2018-03-29] VITALS (15 sets, daily range): BP systolic 91–151; BP diastolic 58–94; PULSE 90–124; RESP 18–28; TEMP 97.3–98.6; O2SAT 95–98
[~2018-03-29] VITALS: Ht 162.6 cm; Wt 120.5 kg
[~2018-03-29 07:47] MED LIST changes: -DULO1CAP3 PO
[2018-03-29 08:43] LABS: AUTOMATED NEUTROPHIL # 8.9 TH/MM3 (1.8-7.7); BASOPHIL # 0.1 TH/MM3 (0-0.2); BASOPHIL % 0.7 % (0.0-2.0); EOSINOPHIL # 0.2 TH/MM3 (0-0.4); EOSINOPHIL % 1.4 % (0.0-4.0); HEMOGLOBIN 12.9 GM/DL (11.6-15.3); LYMPH % 17.8 % (9.0-44.0); LYMPHOCYTE # 2.2 TH/MM3 (1.0-4.8); MEAN CELL VOLUME 92.1 FL (80.0-100.0); MEAN CORPUSCULAR HEMOGLOBIN 29.8 PG (27.0-34.0); MEAN CORPUSCULAR HGB CONC 32.3 % (32.0-36.0); MEAN PLATELET VOLUME 9.9 FL (7.0-11.0); MONO % 8.4 % (0.0-8.0); NEUT % 71.7 % (16.0-70.0); PLATELET COUNT 257 TH/MM3 (150-450); RED BLOOD COUNT 4.34 MIL/MM3 (4.00-5.30); RED CELL DISTRIBUTION WIDTH 15.1 % (11.6-17.2); WHITE BLOOD COUNT 12.4 TH/MM3 (4.0-11.0)
--- NOTE | 2018-03-29 08:59 | RADRPT ---
EXAM DATE/TIME: 03/29/2018 08:27 [facility] COMPARISON: CHEST SINGLE AP, July 14, 2012, 23:51. INDICATIONS : Short of breath MEDICAL HISTORY : Stroke. Cardiovascular disease. SURGICAL HISTORY : None. ENCOUNTER: Initial ACUITY: 1 day PAIN SCORE: 4/10 LOCATION: chest FINDINGS: PA lateral views of the chest demonstrate moderate cardiomegaly, diffuse cephalization of pulmonary v asculature and diffuse bilateral interstitial prominence, new from prior exam. CONCLUSION: Radiographic findings compatible with congestive heart failure and pulmonary edema. Aide Gaitan MD on March 29, 2018 at 8:55 Board Certified Radiologist. This report was verified electronically.
[2018-03-29] MEDS ORDERED: diphenhydrAMINE HCL 50 MG/ML VIAL IV PUSH ONE (09:15)
[2018-03-29] MEDS: METOPROLOL TARTRATE 5 MG/5 ML VIAL IV PUSH PRN ×2 (09:15→10:25)
[2018-03-29] MEDS ORDERED: ORPHENADRINE INJ 60 MG/2 ML AMP IM ONE (09:15)
[2018-03-29 09:18] LABS: BICARBONATE 23.8 MEQ/L (21.0-32.0); CALCIUM 9.3 MG/DL (8.5-10.1); CREATININE 1.21 MG/DL (0.50-1.00)
[2018-03-29 09:19] LABS: TROPONIN I LESS THAN 0.02 NG/ML (0.02-0.05)
--- NOTE | 2018-03-29 09:26 | PD ---
HPI . Shortness of breath Chief Complaint: Respiratory Symptoms Time Seen by Provider: 08:57 Travel History International Travel<30 days: No Contact w/Intl Traveler<30days: No Traveled to known affect area: No History of Present Illness HPI Patient presents to us this morning with the chief complaint of shortness of breath. Onset was 2 weeks ago. Symptoms became acutely worse last night. Shortness of breath is exacerbated by laying down but not by exertion. She reports some associated left-sided chest discomfort this morning which she rates 5/10. She also reports associated diaphoresis "all night last night." Patient denies any previous similar history. She reports no known history of COPD or CHF. 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) Diabetes: Yes (TYPE 2 DIABETES) Patient Takes Glucophage: No Diminished Hearing: No Endocrine: Yes Gastrointestinal Disorders: Yes (UMBILICAL HERNIA) GERD: Yes Glaucoma: No Genitourinary: No Headaches: Yes Hepatitis: No Hiatal Hernia: No Heparin Induced Thrombocytopen: No Hypertension: Yes Immune Disorder: No Implanted Vascular Access Dvce: Yes Kidney Stones: No Medical other: No Musculoskeletal: Yes Neurologic: Yes (CVA-2 OR 3) Psychiatric: No Reproductive: No Respiratory: No Migraines: No Myocardial Infarction: Yes () Radiation Therapy: No Renal Failure: No Seizures: No Sickle Cell Disease: No Sleep Apnea: No Thyroid Disease: Yes (HYPO) Ulcer: No PNEUMOCCOCAL Vaccine (Year): 2 Menopausal: Yes : 4 Para: 4 Miscarriage: 0 : 0 Past Surgical History Abdominal Surgery: Yes (CHOLECYSTECTOMY) AICD: No Appendectomy: Yes Arteriovenous Shunt: No Body Medical Devices: LUMBAR HARDWARE, CARDIAC STENTS, CLUNEAL NERVE STIMULATOR Cardiac Surgery: Yes (3 CARDIAC STENTS;) Section: Yes Cholecystectomy: No Ear Surgery: No Endocrine Surgery: No Eye Surgery: Yes (BILAT CATARACT SURGERY) Genitourinary Surgery: No Gynecologic Surgery: Yes (HYSTERECTOMY; CSECTION) Hysterectomy: Yes Insulin Pump: No Joint Replacement: No Neurologic Surgery: Yes (CAROTID ENDARTARECTOMY) Oral Surgery: Yes (T & A) Pacemaker: No Thoracic Surgery: No Tonsillectomy: Yes Other Surgery: Yes (SARAH, APPENDECTOMY, TONSILLECTOMY, R CARATID ARTERY SX) Social History Alcohol Use: Yes (OCC) Tobacco Use: No (former) Substance Use: No Allergies-Medications (Allergen,Severity, Reaction): Coded Allergies: codeine (Unverified Allergy, Severe, Nausea/Vomiting, 02/26/18) promethazine (Unverified Allergy, Severe, Tachycardia, 02/26/18) morphine (Unverified Adverse Reaction, Severe, HALLUCINATIONS, 02/26/18) Reported Meds & Prescriptions Reported Meds & Active Scripts Active Reported Bydureon Inj (Exenatide) 2 Mg Vial 2 Mg SQ Q7D Vitamin D3 (Cholecalciferol) 2,000 Unit Cap 2,000 Units PO DAILY Pravastatin 20 Mg Tab 20 Mg PO HS Aspirin 81 Mg Chew 81 Mg CHEW DAILY Eliquis (Apixaban) 5 Mg Tab 5 Mg PO BID Lyrica (Pregabalin) 100 Mg Cap 100 Mg PO BID Hydrochlorothiazide 12.5 Mg Tab 12.5 Mg PO DAILY Metoprolol Succinate ER 24 HR (Metoprolol Succinate) 100 Mg Tab 50 Mg PO BID Synthroid (Levothyroxine Sodium) 125 Mcg Tab 125 Mcg PO DAILY Humalog Mix 50-50 Inj (Insulin Lispro Protamine-Lispro 50-50 Inj) 1,000 Unit/10 Ml Vial 40 Units SQ BIDAC Review of Systems Except as stated in HPI: all other systems reviewed are Neg General / Constitutional: Positive: Other (Diaphoresis), No: Fever, Chills Cardiovascular: Positive: Chest Pain or Discomfort Respiratory: Positive: Shortness of Breath Musculoskeletal: Positive: Edema (She reports chronic edema and states that it is no different today than usual) Physical Exam Narrative Vital Signs Date Time Temp Pulse Resp B/P (MAP) Pulse Ox O2 Delivery O2 Flow Rate FiO2 03/29/18 09:08 97 Nasal Cannula 2.00 03/29/18 09:08 18 97 Room Air 03/29/18 09:08 109 28 140/84 (102) 96 Nasal Cannula 2.00 03/29/18 08:14 119 18 96 Nasal Cannula 2.00 03/29/18 08:02 124 18 141/85 (103) 97 Nasal Cannula 2.00 5/13/18 07:50 97.3 113 24 138/94 (109) 96 GENERAL: Awake and alert and in no obvious distress. SKIN: warm/dry. The skin of her ankles and feet is thickened and scaly. HEAD: Normocephalic. Atraumatic. EYES: Pupils equal and round. No scleral icterus. No injection or drainage. ENT: No nasal bleeding or discharge. Mucous membranes pink and moist. NECK: Trachea midline. Full range of motion without pain.. CARDIOVASCULAR: Irregularly irregular rate and rhythm with a heart rate of about 130. RESPIRATORY: No accessory muscle use. Clear to auscultation. Breath sounds equal bilaterally. GASTROINTESTINAL: Abdomen soft. Nontender. Bowel sounds present. Nondistended. MUSCULOSKELETAL: No obvious deformities. Trace pretibial pitting edema. NEUROLOGICAL: Awake and alert. No obvious cranial nerve deficits. Motor grossly within normal limits. Normal speech. PSYCHIATRIC: Appropriate mood and affect; insight and judgment normal. Data Data Last Documented VS Vital Signs Date Time Temp Pulse Resp B/P (MAP) Pulse Ox O2 Delivery O2 Flow Rate FiO2 03/29/18 09:24 105 18 140/84 (102) 97 Nasal Cannula 2.00 03/29/18 07:50 97.3 Orders Orders Complete Blood Count With Diff (03/29/18 08:18) Basic Metabolic Panel (Bmp) (03/29/18 08:18) Chest, Pa & Lat (03/29/18 08:18) Iv Access Insert/Monitor (03/29/18 08:18) Ecg Monitoring (03/29/18 08:18) Oxygen Administration (03/29/18 08:18) Oximetry (03/29/18 08:18) Electrocardiogram (03/29/18 08:18) Ckmb (Isoenzyme) Profile (03/29/18 08:23) Troponin I (03/29/18 08:23) Metoprolol Tartrate Inj (Lopressor Inj) (03/29/18 09:00) B-Type Natriuretic Peptide (03/29/18 09:07) Diphenhydramine Inj (Benadryl Inj) (03/29/18 09:15) Orphenadrine Inj (Norflex Inj) (03/29/18 09:15) Furosemide Inj (Lasix Inj) (03/29/18 09:30) Nitroglycerin 2% Oint (Nitroglycerin 2% (03/29/18 09:30) Admit Order (Ed Use Only) (03/29/18 ) Hospitality Specialist / Telemetry CHARLA.[id number] (03/29/18 09:44) Vital Signs (Adult) Q4H (03/29/18 09:44) Diet Heart Healthy (03/29/18 Breakfast) Activity Oob With Assistance (03/29/18 09:44) Notify Dr: Other (03/29/18 09:44) Labs Laboratory Tests Test 03/29/18 08:22 White Blood Count 12.4 TH/MM3 Red Blood Count 4.34 MIL/MM3 Hemoglobin 12.9 GM/DL Hematocrit 40.0 % Mean Corpuscular Volume 92.1 FL Mean Corpuscular Hemoglobin 29.8 PG Mean Corpuscular Hemoglobin Concent 32.3 % Red Cell Distribution Width 15.1 % Platelet Count 257 TH/MM3 Mean Platelet Volume 9.9 FL Neutrophils (%) (Auto) 71.7 % Lymphocytes (%) (Auto) 17.8 % Monocytes (%) (Auto) 8.4 % Eosinophils (%) (Auto) 1.4 % Basophils (%) (Auto) 0.7 % Neutrophils # (Auto) 8.9 TH/MM3 Lymphocytes # (Auto) 2.2 TH/MM3 Monocytes # (Auto) 1.0 TH/MM3 Eosinophils # (Auto) 0.2 TH/MM3 Basophils # (Auto) 0.1 TH/MM3 CBC Comment DIFF FINAL Differential Comment Blood Urea Nitrogen 17 MG/DL Creatinine 1.21 MG/DL Random Glucose 289 MG/DL Calcium Level 9.3 MG/DL Sodium Level 139 MEQ/L Potassium Level 4.9 MEQ/L Chloride Level 104 MEQ/L Carbon Dioxide Level 23.8 MEQ/L Anion Gap 11 MEQ/L Estimat Glomerular Filtration Rate 43 ML/MIN Total Creatine Kinase 89 U/L Troponin I LESS THAN 0.02 NG/ML MDM Medical Decision Making Medical Screen Exam Complete: Yes Emergency Medical Condition: Yes Medical Record Reviewed: Yes (Medical history is significant for diabetes, peripheral arterial disease and intermittent atrial fibrillation. Her most recent rhythm documented here was a normal sinus rhythm in December.) Interpretation(s) EKG shows atrial fibrillation with a ventricular response of 140 Differential Diagnosis Differential diagnosis of dyspnea includes but is not limited to congestive heart failure, pneumonia, wheezing, pneumothorax, pulmonary embolism Narrative Course Patient presents with chief complaint of dyspnea. She is in atrial fibrillation with rapid ventricular response. Her usual underlying rhythm is sinus but she does have a history of intermittent atrial fibrillation. Metoprolol 5 mg IV every 5 minutes has been ordered to treat the rapid heart rate. Last Impressions Chest X-Ray 03/29/18 0818 Signed Impressions: Service Date/Time: Thursday, March 29, 2018 08:27 - CONCLUSION: Radiographic findings compatible with congestive heart failure and pulmonary edema. Aide Gaitan MD The chest x-ray was independently reviewed by me. Lasix and nitroglycerin have now been ordered. CBC & BMP Diagram 03/29/18 08:22 Calcium Level 9.3 Troponin less than 0.02 Critical Care Narrative Aggregate critical care time was 30 minutes. Time to perform other separately billable procedures was not included in the critical care time. My time did not include minutes spent treating any other patients simultaneously or on activities that did not directly contribute to the patient's treatment. The services I provided to this patient were to treat and/or prevent clinically significant deterioration due to AF with RVR, pulmonary edema I provided critical care services requiring my management, as noted below: Chart data review, documentation time, medication orders and management, vital sign assessments/reviewing monitor data, ordering and reviewing lab tests, ordering and interpreting/reviewing x-rays and diagnostic studies, care of the patient and discussion of the patient with the admitting physicians Diagnosis Primary Impression: Atrial fibrillation with rapid ventricular response Additional Impression: Pulmonary edema Qualified Codes: J81.0 - Acute pulmonary edema Admitting Information Admitting Physician Requests: Admit Condition: Stable Hermelinda Vogt MD March 29, 2018 09:26
[2018-03-29] MEDS ORDERED: FUROSEMIDE 40 MG/4 ML VIAL IV PUSH ONE (09:30)
[2018-03-29] MEDS ORDERED: NITROGLYCERIN 2% OINT 1 GM PACKET TOPICAL ONE (09:30)
--- NOTE | 2018-03-29 10:00 | HHI.HP ---
HPI Service Family Medicine Primary Care Physician No Primary Care Physician Admission Diagnosis AF with RVR, pulm edema Diagnoses: International Travel<30 Days: No Contact w/Intl Traveler<30days: No Known Affected Area: No History of Present Illness Patient is a 77-year-old female with a history of CAD, carotid artery stenosis, congestive heart failure, CVA, depression, type II diabetes, hypercholesterolemia, hypertension, hypothyroid, obesity, NJ, paroxysmal A. fib , peripheral vascular disease who presents with progressively worsening dyspnea. Patient reports that she started to feel some shortness of breath and dyspnea on exertion starting about 2 weeks ago. The symptoms became progressively worse over the past 2 weeks until she felt like she could not breathe last night. She reports that her dyspnea is worse with exertion, worse with lying flat. She reports 2 pillow orthopnea. She also reports an associated dry cough. She also presents with a complaint of left sided substernal chest pain that is worse with exertion. She denies any radiation of the pain. She reports night sweats. (Zohaib Barrett MD R2) Review of Systems Other Constitutional: No chills, fever, + fatigue. No dramatic weight changes or night sweats. ENT: Denies hearing loss or sore throat. Denies vision changes, eye pain, hearing changes, rhinorrhea, sore throat Denies sore throat, runny nose. EYES: No blurred vision or double vision. ENDO: No cold or heat intolerance. No polyuria, polydipsia RESPIRATORY: + dry cough, +SOB, +LUTZ HEART: + chest pain nut no palpitations. GI: Denies constipation, diarrhea, nausea, vomiting, black or bloody stools. No abdominal pain : No dysuria, hematuria MUSC: No joint pain or muscle aches. SKIN: No rashes or itching. NEURO: Denies any headaches, weakness, or paresthesias. PSYCH: Denies anxiety or depression. LYMPH: No new lumps or bumps. 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 Past Surgical History Angioplasty 2000 Appendectomy at 12 years old Back surgery in 2007 section at 20 years old Cholecystectomy Hysterectomy at 32 years old due to cancer RCA stent January 2012 Tonsillectomy as a child Reported Medications Reported Meds & Active Scripts Active Reported Bydureon Inj (Exenatide) 2 Mg Vial 2 Mg SQ Q7D Vitamin D3 (Cholecalciferol) 2,000 Unit Cap 2,000 Units PO DAILY Pravastatin 20 Mg Tab 20 Mg PO HS Aspirin 81 Mg Chew 81 Mg CHEW DAILY Eliquis (Apixaban) 5 Mg Tab 5 Mg PO BID Lyrica (Pregabalin) 100 Mg Cap 100 Mg PO BID Hydrochlorothiazide 12.5 Mg Tab 12.5 Mg PO DAILY Metoprolol Succinate ER 24 HR (Metoprolol Succinate) 100 Mg Tab 50 Mg PO BID Synthroid (Levothyroxine Sodium) 125 Mcg Tab 125 Mcg PO DAILY Humalog Mix 50-50 Inj (Insulin Lispro Protamine-Lispro 50-50 Inj) 1,000 Unit/10 Ml Vial 40 Units SQ BIDAC (Zohaib Barrett MD R2) Allergies: Coded Allergies: codeine (Unverified Allergy, Severe, Nausea/Vomiting, 02/26/18) promethazine (Unverified Allergy, Severe, Tachycardia, 02/26/18) morphine (Unverified Adverse Reaction, Severe, HALLUCINATIONS, 02/26/18) Active Ordered Medications Current Medications Medications (Trade) Dose Ordered Sig/Isma Route Start Time Stop Time Status Last Admin (Lopressor Inj) 5 mg Q5M PRN IV PUSH 03/29/18 09:00 03/29/18 10:25 (NS Flush) 2 ml BID IV FLUSH 03/29/18 21:00 (NS Flush) 2 ml UNSCH PRN IV FLUSH 03/29/18 10:15 (Lasix Inj) 40 mg BID@18 IVP 03/29/18 18:00 (KCl) 20 meq BID PO 03/30/18 09:00 (Aspirin) 325 mg NOW PO 03/29/18 11:00 03/30/18 10:59 03/29/18 11:52 (Tylenol) 650 mg Q6H PRN PO 03/29/18 11:00 (Colace) 100 mg BID PRN PO 03/29/18 11:00 (Xanax) 0.25 mg Q8H PRN PO 03/29/18 11:00 (Eliquis) 5 mg Q12H PO 03/29/18 11:00 03/29/18 11:52 (Aspirin Chew) 81 mg DAILY CHEW 03/30/18 09:00 (Vitamin D3) 2,000 units DAILY PO 03/29/18 11:00 03/29/18 11:52 (Microzide) 12.5 mg DAILY PO 03/29/18 11:00 03/29/18 11:51 (Synthroid) 125 mcg DAILY@0600 PO 03/29/18 11:00 03/29/18 11:51 (Pravachol) 20 mg HS PO 03/29/18 21:00 (Lyrica) 100 mg BID PO 03/29/18 11:00 03/29/18 11:52 (Toprol Xl) 50 mg BID PO 03/29/18 21:00 (D50w (Vial) Inj) 50 ml UNSCH PRN IV PUSH 03/29/18 11:00 (Glucagon Inj) 1 mg UNSCH PRN OTHER 03/29/18 11:00 (NovoLOG SUPPLEMENTAL SCALE) 1 ACHS SLIDING SCALE SQ 03/29/18 12:00 03/29/18 11:36 (Levemir Inj) 10 units Q12HR SQ 03/29/18 21:00 (Tylenol) 650 mg Q6H PRN PO 03/29/18 11:15 (Percocet 5-325 Mg) 1 tab Q6H PRN PO 03/29/18 11:15 (Percocet 10-325 Mg) 1 tab Q6H PRN PO 03/29/18 11:15 (Dilaudid Pf Inj) 0.5 mg Q3H PRN IV PUSH 03/29/18 11:15 03/29/18 14:27 (Narcan Inj) 0.4 mg UNSCH PRN IV PUSH 03/29/18 11:15 (Zofran Odt) 4 mg Q6H PRN PO 03/29/18 11:15 Family History CAD in brother and sister CVA in sister Type 2 diabetes in brother and sister Social History Occasional alcohol use Completed some high school Retired Sedentary Former tobacco smoker started 37 (Zohaib Barrett MD R2) Physical Exam Vital Signs Vital Signs Date Time Temp Pulse Resp B/P (MAP) Pulse Ox O2 Delivery O2 Flow Rate FiO2 03/29/18 09:24 105 18 140/84 (102) 97 Nasal Cannula 2.00 03/29/18 09:08 97 Nasal Cannula 2.00 03/29/18 09:08 18 97 Room Air 03/29/18 09:08 109 28 140/84 (102) 96 Nasal Cannula 2.00 03/29/18 08:14 119 18 96 Nasal Cannula 2.00 03/29/18 08:02 124 18 141/85 (103) 97 Nasal Cannula 2.00 03/29/18 07:50 97.3 113 24 138/94 (109) 96 Physical Exam GENERAL: Awake and alert and in no obvious distress. SKIN: warm/dry. The skin of her ankles and feet is thickened and scaly with dry flaky skin. There is also erythema of her feet up to her ankles, right greater than left, clearly demarcated without any associated warmth. HEAD: Normocephalic. Atraumatic. EYES: Pupils equal and round. No scleral icterus. No injection or drainage. ENT: No nasal bleeding or discharge. Mucous membranes pink and moist. NECK: Trachea midline. Full range of motion without pain. CARDIOVASCULAR: Tachycardic rate and Irregularly irregular rhythm with a heart rate of about 100-110. RESPIRATORY: No accessory muscle use. Decreased breath sounds at the bases, but otherwise clear to auscultation. GASTROINTESTINAL: Abdomen soft. Nontender. Bowel sounds present. Nondistended. MUSCULOSKELETAL: 1+ pitting edema BL. No obvious deformities. See skin above for foot exam. NEUROLOGICAL: Awake and alert. No obvious cranial nerve deficits. Motor grossly within normal limits. Normal speech. PSYCHIATRIC: Appropriate mood and affect; insight and judgment normal. Laboratory Laboratory Tests Test 03/29/18 08:22 White Blood Count 12.4 Red Blood Count 4.34 Hemoglobin 12.9 Hematocrit 40.0 Mean Corpuscular Volume 92.1 Mean Corpuscular Hemoglobin 29.8 Mean Corpuscular Hemoglobin Concent 32.3 Red Cell Distribution Width 15.1 Platelet Count 257 Mean Platelet Volume 9.9 Neutrophils (%) (Auto) 71.7 Lymphocytes (%) (Auto) 17.8 Monocytes (%) (Auto) 8.4 Eosinophils (%) (Auto) 1.4 Basophils (%) (Auto) 0.7 Neutrophils # (Auto) 8.9 Lymphocytes # (Auto) 2.2 Monocytes # (Auto) 1.0 Eosinophils # (Auto) 0.2 Basophils # (Auto) 0.1 CBC Comment DIFF FINAL Differential Comment Blood Urea Nitrogen 17 Creatinine 1.21 Random Glucose 289 Calcium Level 9.3 Sodium Level 139 Potassium Level 4.9 Chloride Level 104 Carbon Dioxide Level 23.8 Anion Gap 11 Estimat Glomerular Filtration Rate 43 Total Creatine Kinase 89 Troponin I LESS THAN 0.02 (Zohaib Barrett MD R2) Result Diagram: 03/29/1882103/29/18821 Imaging Last Impressions Chest X-Ray 03/29/18817 Signed Impressions: Service Date/Time: Thursday, March 29, 2018 08:27 - CONCLUSION: Radiographic findings compatible with congestive heart failure and pulmonary edema. Aide Gaitan MD Course In the emergency department, patient had EKG, chest x-ray, BMP, CBC, troponin, CK-MB, metoprolol tartrate 5 mg IV push every 5 minutes, BNP, Norflex IM, Benadryl IV, nitroglycerin ointment, Lasix IV. (Zohaib Barrett MD R2) Caprini VTE Risk Assessment Caprini VTE Risk Assessment: Mod/High Risk (score >= 2) Caprini Risk Assessment Model Point Value = 1 Point Value = 2 Point Value = 3 Point Value = 5 Age 41-60 Minor surgery BMI > 25 kg/m2 Swollen legs Varicose veins or History of unexplained or recurrent spontaneous Oral contraceptives or hormone replacement Sepsis (< 1 month) Serious lung disease, including pneumonia (< 1 month) Abnormal pulmonary function Acute myocardial infarction Congestive heart failure (< 1 month) History of inflammatory bowel disease Medical patient at bed rest Age 61-74 Arthroscopic surgery Major open surgery (> 45 min) Laparoscopic surgery (> 45 min) Malignancy Confined to bed (> 72 hours) Immobilizing plaster cast Central venous access Age >= 75 History of VTE Family history of VTE Factor V Leiden Prothrombin [id number] Lupus anticoagulant Anticardiolipin antibodies Elevated serum homocysteine Heparin-induced thrombocytopenia Other congenital or acquired thrombophilia Stroke (< 1 month) Elective arthroplasty Hip, pelvis, or leg fracture Acute spinal cord injury (< 1 month) Prophylaxis Regimen Total Risk Factor Score Risk Level Prophylaxis Regimen 0-1 Low Early ambulation 2 Moderate Order ONE of the following: *Sequential Compression Device (SCD) *Heparin 5000 units SQ BID 3-4 Higher Order ONE of the following medications: *Heparin 5000 units SQ TID *Enoxaparin/Lovenox 40 mg SQ daily (WT < 150 kg, CrCl > 30 mL/min) *Enoxaparin/Lovenox 30 mg SQ daily (WT < 150 kg, CrCl > 10-29 mL/min) *Enoxaparin/Lovenox 30 mg SQ BID (WT < 150 kg, CrCl > 30 mL/min) AND/OR *Sequential Compression Device (SCD) 5 or more Highest Order ONE of the following medications: *Heparin 5000 units SQ TID (Preferred with Epidurals) *Enoxaparin/Lovenox 40 mg SQ daily (WT < 150 kg, CrCl > 30 mL/min) *Enoxaparin/Lovenox 30 mg SQ daily (WT < 150 kg, CrCl > 10-29 mL/min) *Enoxaparin/Lovenox 30 mg SQ BID (WT < 150 kg, CrCl > 30 mL/min) AND *Sequential Compression Device (SCD) (Zohaib Barrett MD R2) Assessment and Plan Assessment and Plan Patient is a 77-year-old female with a history of CAD, carotid artery stenosis, congestive heart failure, CVA, depression, type II diabetes, hypercholesterolemia, hypertension, hypothyroid, obesity, [place], paroxysmal A. fib , peripheral vascular disease who presents with progressively worsening dyspnea , found to have pulmonary edema consistent with acute on chronic CHF exacerbation and A. fib with RVR. Code Status Full code (Zohaib Barrett MD R2) Attending Attestation THIS CASE WAS DISCUSSED WITH THE RESIDENT PHYSICIANS. I HAVE REVIEWED THE RECORD AND AGREE WITH THE ABOVE NOTE AND PLAN OF CARE WAS DISCUSSED. I HAVE AUTHORIZED THE ORDER FOR ADMISSION TO AN IN-PATIENT STATUS. (Lisa Briseno MD) Problem List: (1) Pulmonary edema ICD Codes: J81.1 - Chronic pulmonary edema Status: Acute Plan: pulmonary edema consistent with acute on chronic CHF exacerbation -Admit to inpatient -Lasix 40 mg IV twice daily -Diabetic diet with 2L fluid and 2g sodium restrictions -Daily weight -Monitor vital signs -Monitor I's and O's -Continue home medication of metoprolol succinate ER 50 mg p.o. 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 -Aspirin 325 mg p.o. now -ACS rule out with q. 6 hour EKG and troponin -Continue home medication of statin, beta-william -Patient with allergy to morphine requested Dilaudid. Ordered Tylenol, Percocet , hydromorphone for breakthrough pain. (3) Atrial fibrillation with rapid ventricular response ICD Codes: I48.91 - Unspecified atrial fibrillation Status: Acute Plan: Patient with history of paroxysmal A. fib. Patient received IV metoprolol in the emergency department. -Continue home medication of metoprolol ER 50 mg p.o. twice daily for rate control -Continue home medication of Eliquis 5 mg p.o. every 12 hours (4) Diabetes ICD Codes: E11.9 - Diabetes Status: Acute Plan: Patient takes 40 units twice daily before meals of insulin lispro protamine-lispro 50-50. She also takes exenatide 2 mg subcu q. 7 days -Cut home insulin dose in half for long-acting insulin dose of Levemir 10 units subcu every 12 hours -Low sliding scale insulin -Hypoglycemia protocol ordered (5) Hypertension ICD Codes: I10 - Essential (primary) hypertension Plan: -Continue home medication of metoprolol succinate ER 24 hours 50 mg p.o. twice daily -Continue home medication of hydrochlorothiazide 12.5 mg p.o. daily (6) Hypercholesteremia ICD Codes: E78.00 - Pure hypercholesterolemia, unspecified Plan: -Continue home medication of pravastatin 20 g p.o. nightly (7) Chronic back pain ICD Codes: M54.9 - Dorsalgia, unspecified; G89.29 - Other chronic pain Plan: -Replaced patient's home medication of OxyContin Contin 10 mg p.o. every 8 hours (8) Neuropathy ICD Codes: G62.9 - Polyneuropathy, unspecified Plan: -Continue patient's home medication of Lyrica 100 mg p.o. twice daily (9) Hypothyroidism ICD Codes: E03.9 - Hypothyroidism, unspecified Plan: -Continue patient's home medication of levothyroxine 125 mcg p.o. daily (10) Vitamin D deficiency ICD Codes: E55.9 - Vitamin D deficiency, unspecified Plan: -Continue patient's home medication of cholecalciferol 2000 units p.o. daily (11) No contraindication to deep vein thrombosis (DVT) prophylaxis ICD Codes: Z78.9 - Other specified health status Plan: -Patient already on Eliquis -Continue home medication of Eliquis 5 mg p.o. every 12 hours (12) Nutrition, metabolism, and development symptoms ICD Codes: R63.8 - Other symptoms and signs concerning food and fluid intake Plan: Fluids: Held for CHF exacerbation, volume overload Electrolytes: Monitor and replete Nutrition: Diabetic diet with 2 L fluid restriction, 2 g sodium restriction GI prophylaxis: Not currently indicated (Zohaib Barrett MD R2) Physician Certification 2 Midnight Certification Type: Admission for Inpatient Services Order for Inpatient Services The services are ordered in accordance with Medicare regulations or non- Medicare payer requirements, as applicable. In the case of services not specified as inpatient-only, they are appropriately provided as inpatient services in accordance with the 2-midnight benchmark. Estimated LOS (days): 2 2 days is the estimated time the patient will need to remain in the hospital, assuming treatment plan goals are met and no additional complications. Post-Hospital Plan: Not yet determined (Zohaib Barrett MD R2) 2 Midnight Certification Type: Admission for Inpatient Services Post-Hospital Plan: Home (Lisa Briseno MD) Problem Qualifiers (1) Pulmonary edema: Qualified Codes: J81.0 - Acute pulmonary edema Zohaib Barrett MD R2 March 29, 2018 10:00 Lisa Briseno MD March 30, 2018 12:20
[2018-03-29] MEDS ORDERED: ACETAMINOPHEN 325 MG TAB PO PRN ×2 (11:00→11:15)
[2018-03-29] MEDS ORDERED: GLUCAGON 1 MG/ML VIAL OTHER PRN (11:00)
[2018-03-29] MEDS ORDERED: DOCUSATE SODIUM 100 MG CAP PO PRN (11:00)
[2018-03-29] MEDS ORDERED: ALPRAZolam 0.25 MG TAB PO PRN (11:00)
[2018-03-29] MEDS ORDERED: DEXTROSE 50% IN WATER 50 ML VIAL(D50) IV PUSH PRN (11:00)
[2018-03-29] MEDS ORDERED: ASPIRIN 325 MG TAB PO SCH (11:00)
[2018-03-29] MEDS ORDERED: ONDANSETRON HCL 4 MG/2 ML VIAL IV PUSH PRN (11:00)
[2018-03-29] MEDS ORDERED: OXYC-103 PO (11:05)
[2018-03-29] MEDS ORDERED: ONDANSETRON ODT 4 MG TAB PO PRN (11:15)
[2018-03-29] MEDS ORDERED: HYDROmorphone HCL PF 0.5 MG/0.5 ML SYRINGE IV PUSH ONE (11:15)
[2018-03-29] MEDS ORDERED: NALOXONE HCL 0.4 MG/ML AMP IV PUSH PRN (11:15)
[2018-03-29] MEDS ORDERED: oxyCODONE/ACETAMINOPHEN 5 MG/325 MG TAB PO PRN (11:15)
[2018-03-29] MEDS: INSULIN ASPART SUPPLEMENTAL SCALE SQ SCH ×3 (11:36→20:31)
[2018-03-29] MEDS: HYDROCHLOROTHIAZIDE 12.5 MG CAP PO SCH (11:51)
[2018-03-29] MEDS: LEVOTHYROXINE SODIUM 125 MCG TAB PO SCH (11:51)
[2018-03-29] MEDS: APIXABAN 5 MG TABLET PO SCH ×2 (11:52→22:17)
[2018-03-29] MEDS: PREGABALIN 100 MG CAP PO SCH ×2 (11:52→20:20)
[2018-03-29] MEDS: CHOLECALCIFEROL (VIT D3) 1000 UNIT TAB PO SCH (11:52)
[2018-03-29] MEDS: HYDROmorphone HCL PF 0.5 MG/0.5 ML SYRINGE IV PUSH PRN ×3 (14:27→22:17)
--- NOTE | 2018-03-29 17:04 | EKG ---
Date Performed: 03/29/2018 Time Performed: 08:08:24 PTAGE: 77 years EKG: ATRIAL FIBRILLATION WITH RAPID VENTRICULAR RESPONSE BORDERLINE RIGHT AXIS DEVIATION INFERIO R MYOCARDIAL INFARCTION ABNORMAL ECG PREVIOUS TRACING : 03/29/2018 08.07 Compared to previous tracing, SR no longer present DOCTOR: Angella Gruber Interpretating Date/Time 03/29/2018 17:02:58
[2018-03-29] MEDS: FUROSEMIDE 40 MG/4 ML VIAL IVP SCH (17:15)
[2018-03-29] MEDS: PRAVASTATIN SOD 20 MG TAB PO SCH (20:20)
[2018-03-29] MEDS: oxyCODONE/ACETAMINOPHEN 10 MG/325 MG TAB PO PRN (20:20)
[2018-03-29] MEDS: SODIUM CHLORIDE 0.9% FLUSH 10 ML FLUSH IV FLUSH SCH (20:21)
[2018-03-29] MEDS: INSULIN DETEMIR 100 UNITS/ML VIAL SQ SCH (20:21)
[2018-03-29] MEDS: METOPROLOL SUCCINATE 50 MG EXTENDED RELEASE TAB PO SCH (20:31)
[2018-03-30] VITALS (21 sets, daily range): BP systolic 115–159; BP diastolic 68–94; PULSE 84–124; RESP 18–22; TEMP 97.3–98.3; O2SAT 96–100
[2018-03-30] MEDS: HYDROmorphone HCL PF 0.5 MG/0.5 ML SYRINGE IV PUSH PRN ×4 (05:01→19:23)
[2018-03-30] MEDS: LEVOTHYROXINE SODIUM 125 MCG TAB PO SCH (05:01)
[2018-03-30 07:20] LABS: HEMATOCRIT 40.3 % (35.0-46.0); HEMOGLOBIN 13.2 GM/DL (11.6-15.3); MEAN CELL VOLUME 92.4 FL (80.0-100.0); MEAN CORPUSCULAR HEMOGLOBIN 30.2 PG (27.0-34.0); MEAN CORPUSCULAR HGB CONC 32.6 % (32.0-36.0); MEAN PLATELET VOLUME 9.5 FL (7.0-11.0); PLATELET COUNT 223 TH/MM3 (150-450); RED BLOOD COUNT 4.36 MIL/MM3 (4.00-5.30); RED CELL DISTRIBUTION WIDTH 14.8 % (11.6-17.2); WHITE BLOOD COUNT 9.5 TH/MM3 (4.0-11.0)
[2018-03-30 07:36] LABS: BICARBONATE 28.7 MEQ/L (21.0-32.0); CALCIUM 9.5 MG/DL (8.5-10.1); CREATININE 1.58 MG/DL (0.50-1.00)
[2018-03-30] MEDS: INSULIN ASPART SUPPLEMENTAL SCALE SQ SCH ×4 (08:00→23:28)
[2018-03-30] MEDS: PREGABALIN 100 MG CAP PO SCH ×3 (08:40→23:41)
[2018-03-30] MEDS: POTASSIUM CHLORIDE 20 MEQ CONTROLLED RELEASE TAB PO SCH ×2 (08:40→23:20)
[2018-03-30] MEDS: HYDROCHLOROTHIAZIDE 12.5 MG CAP PO SCH (08:40)
[2018-03-30] MEDS: CHOLECALCIFEROL (VIT D3) 1000 UNIT TAB PO SCH (08:40)
[2018-03-30] MEDS: METOPROLOL SUCCINATE 50 MG EXTENDED RELEASE TAB PO SCH ×2 (08:40→23:20)
[2018-03-30] MEDS: ASPIRIN 81 MG CHEW TAB CHEW SCH (08:40)
[2018-03-30] MEDS: FUROSEMIDE 40 MG/4 ML VIAL IVP SCH (08:41)
[2018-03-30] MEDS: SODIUM CHLORIDE 0.9% FLUSH 10 ML FLUSH IV FLUSH SCH ×2 (08:41→23:22)
[2018-03-30] MEDS: INSULIN DETEMIR 100 UNITS/ML VIAL SQ SCH ×2 (08:42→23:27)
[2018-03-30] MEDS ORDERED: FUROSEMIDE 20 MG/2 ML VIAL IV PUSH ONE (09:15)
--- NOTE | 2018-03-30 10:48 | RADRPT ---
EXAM DATE/TIME: 03/30/2018 09:41 [facility] COMPARISON: CHEST PA & LAT, March 29, 2018, 8:27. INDICATIONS : Short of Breath MEDICAL HISTORY : Stroke. Cardiovascular disease. SURGICAL HISTORY : None. ENCOUNTER: Subsequent ACUITY: 2 days PAIN SCORE: 4/10 LOCATION: chest FINDINGS: PA and lateral views of the chest demonstrate the lungs to be mildly hyperinflated without evidence o f mass, infiltrate or effusion. The cardiomediastinal contours are unremarkable. Surgical clips rig ht neck. Osseous structures are intact. CONCLUSION: Mild hyperinflation without failure. Darwin Reece MD FACR on March 30, 2018 at 10:44 Board Certified Radiologist. This report was verified electronically.
[2018-03-30] MEDS: oxyCODONE/ACETAMINOPHEN 10 MG/325 MG TAB PO PRN ×2 (11:09→23:19)
[2018-03-30] MEDS: RESP: ALBUTEROL 2.5 MG/IPRATROPIUM 0.5 MG NEB (SCH) NEB ×3 (11:09→21:34)
[2018-03-30] MEDS: APIXABAN 5 MG TABLET PO SCH ×2 (11:12→23:20)
[2018-03-30] MEDS: PETROLATUM 30 GM TUBE TOPICAL SCH ×2 (12:20→23:22)
--- NOTE | 2018-03-30 13:57 | HHI.FPPN ---
Addendum to progress note ADDENDUM Reason for addendum: Additonal documentation Additional information please see resident H and P for further documentation of the patients history. Patient was admitted for increasing SOB felt to be due to CHF exacerbation. Pt reports she is not much better since admission. She reports continued SOB and some substernal CP. She states she is also having some issues with swallowing and feels like she is having a hard time swallowing. She is eating and drinking coffee at the time of the exam without much difficulty. Last Impressions Chest X-Ray 03/30/18 0000 Signed Impressions: Service Date/Time: Friday, March 30, 2018 09:41 - CONCLUSION: Mild hyperinflation without failure. Darwin Reece MD FACR Vital Signs Date Time Temp Pulse Resp B/P (MAP) Pulse Ox O2 Delivery O2 Flow Rate FiO2 03/30/18 12:55 114 03/30/18 12:50 18 03/30/18 11:13 98 Nasal Cannula 2.00 03/30/18 11:10 97.8 130/68 (88) Laboratory Tests Test 03/29/18 17:17 03/29/18 23:11 03/30/18 06:34 Troponin I LESS THAN 0.02 NG/ML LESS THAN 0.02 NG/ML White Blood Count 9.5 TH/MM3 Red Blood Count 4.36 MIL/MM3 Hemoglobin 13.2 GM/DL Hematocrit 40.3 % Mean Corpuscular Volume 92.4 FL Mean Corpuscular Hemoglobin 30.2 PG Mean Corpuscular Hemoglobin Concent 32.6 % Red Cell Distribution Width 14.8 % Platelet Count 223 TH/MM3 Mean Platelet Volume 9.5 FL Blood Urea Nitrogen 24 MG/DL Creatinine 1.58 MG/DL Random Glucose 222 MG/DL Calcium Level 9.5 MG/DL Sodium Level 137 MEQ/L Potassium Level 4.2 MEQ/L Chloride Level 98 MEQ/L Carbon Dioxide Level 28.7 MEQ/L Anion Gap 10 MEQ/L Estimat Glomerular Filtration Rate 32 ML/MIN Current Medications Medications (Trade) Dose Ordered Sig/Isma Route PRN Reason Start Time Stop Time Status Last Admin Dose Admin Metoprolol Tartrate (Lopressor Inj) 5 mg Q5M PRN IV PUSH HR > 100 03/29/18 09:00 03/29/18 10:25 Diphenhydramine HCl (Benadryl Inj) 25 mg ONCE ONCE IV PUSH 03/29/18 09:15 03/29/18 09:39 DC 03/29/18 09:23 Orphenadrine Citrate (Norflex Inj) 60 mg ONCE ONCE IM 03/29/18 09:15 03/29/18 09:39 DC 03/29/18 09:23 Furosemide (Lasix Inj) 40 mg ONCE ONCE IV PUSH 03/29/18 09:30 03/29/18 09:39 DC 03/29/18 09:28 Nitroglycerin (Nitroglycerin 2% Oint) 1 inch ONCE ONCE TOPICAL 03/29/18 09:30 03/29/18 09:39 DC 03/29/18 09:28 Current Medications Medications (Trade) Dose Ordered Sig/Isma Route PRN Reason Start Time Stop Time Status Last Admin Dose Admin Metoprolol Tartrate (Lopressor Inj) 5 mg Q5M PRN IV PUSH HR > 100 03/29/18 09:00 03/29/18 10:25 O. CONSTITUTIONAL/GEN: normally nourished, in mild resp distress. She is having a little trouble getting through long sentances without having to stop for air. She is also a little shakey sounding in her voice. EYES: conjunctiva normal, anicteric ENT: Mouth and pharynx normal. LUNGS: decreased breath sounds throughout, no overt wheezing, she is moving air , mild basilar crackles CARDIOVASCULAR: irr irr GI/ABD: soft without masses, without organomegaly. : no CVA tenderness NEURO: No focal deficits. She is sitting on the edge of the bed and able to move around during the exam without any issues SKIN: bilateral feet and ankles with scaling, erythematous skin, cool to touch but sensation intact HEME/LYMPH: no bruising, petechia or significant adenopathy MUSC: back is normal in appearance. Extremities are normal in appearance. PSYCH/MENTAL STATUS: Alert and oriented x 3. AP 1. SOB/CP/LUTZ -- ACS rule out was negative. Possible acute on chronic CHF exacerbation. Not a lot of diuresis occurred overnight and the patient is not clinically much better. Add additional 20mg IV lasix, check echocardiogram. Consider aortic dissection -- will check aortogram. Also consider PE -- patient is on eliquis already but certainly at risk for PE. Her renal Cr is up today to 1.53 so do not want to get two contrast studies done. Will check the aortogram, consider PE workup with CTA if still clinically relevant when the patients renal function improves. Due to all her other comorbidities and with the CHF exacerbation feel D-Dimer and VQ scan will be very low yield and impossible to interpret so will not order those at this time. Patient with h/ o smoking in the past as well. Will start her on duo-nebs and see if that helps her symptoms. Further testing and treatment based on the results of the above ordered tests and her clinical picture today. Consider cardiology consult if the patient does not clinically improve. With the patient history of all of her vascular issues and co-morbid conditions she is at high risk for complications, etc. 2. Dysphagia -- this is a pretty vague complaint and the patient is actively eating and drinking while we are in the exam room today. Will ask speech therapy to do a swallow evaluation. 3. Afib -- her pulse has remained reasonable in the 90-low 100 on her home metoprolol -- will monitor but continue home meds for now. 4. Other chronic disease -- home meds, stable, continue current management. Patient seen and dw the resident team -- Dr. Ramirez, Dr. Barrett, Dr. Danielle Briseno,Lisa Smith MD March 30, 2018 13:57
[2018-03-30] MEDS ORDERED: IODIXANOL 320 MG/ML 50 ML VIAL (for Rad CT) IVCONTRAST ONE (16:42)
--- NOTE | 2018-03-30 16:57 | RADRPT ---
EXAM DATE/TIME: 03/30/2018 15:51 [place] COMPARISON: No previous studies available for comparison. INDICATIONS : Aortic dissection, back pain IV CONTRAST: 50 cc Visipaque (iodixanol) IV RADIATION DOSE: 10.10 CTDIvol (mGy) MEDICAL HISTORY : Hypertension. Cardiovascular disease Carotid endarterectomy, diabetes, endometrial cancer, cervical c ancer SURGICAL HISTORY : Hysterectomy. ENCOUNTER: Initial ACUITY: 1 day PAIN SCALE: 3/10 LOCATION: Aorta TECHNIQUE: Volumetric scanning was performed using a multi-row detector CT scanner. The data was post processed with a variety of visualization algorithms including full volume maximum intensity projection, multi -planar sliding thin slab reformation, curved planar reformation, and surface rendering techniques. Using automated exposure control and adjustment of the mA and/or kV according to patient size, radiat ion dose was kept as low as reasonably achievable to obtain optimal diagnostic quality images. DICOM format image data is available electronically for review and comparison. FINDINGS: LUNGS: There are no suspicious lung lesions identified. Minimal pleural thickening is present on the right. MEDIASTINUM: No abnormally enlarged lymph nodes by CT criteria. No axillary or hilar abnormalities are identified. Moderate coronary calcifications are present in including the LAD and circumflex. There is no mavis cardial effusion. ABDOMEN: The liver and spleen are free of focal defects. The gallbladder and pancreas demonstrate no abnormali ty. The adrenal glands are normal. The kidneys demonstrate no evidence of solid renal mass or hydrone phrosis. No free fluid or abdominal masses are identified. No para-aortic adenopathy is seen. Midlin e abdominal hernia is present containing bowel without obvious incarceration. Transverse fixation lo wer lumbar spine The Spinal stimulator evident. PELVIS: No evidence of free fluid or pelvic mass. No abnormally enlarged inguinal or retroperitoneal lymph no olga lidia are present. The bladder is unremarkable. THORACIC AORTA: The thoracic aortic root is normal with normal branching of the great vessels. There is no evidence of aneurysm or dissection. ABDOMINAL AORTA: The aorta is normal in caliber without aneurysm or dissection. Densely calcified and nondilated abdo casper aorta is noted. Dense calcification is present at the level renal arteries. SMA and celiac ar e patent. PELVIC VESSELS: Moderate aortoiliac disease is present. Extraocular and common femorals are patent. CONCLUSION: 1. Negative for aneurysm or dissection 2. Moderate coronary calcifications without pleural effusion 3. Mild cardiomegaly with trace effusion on the right 4. Spinal stimulator 5. Transpedicular lumbar fixation 6. No inflammatory changes in the chest or abdomen. Darwin Reece MD FACR on March 30, 2018 at 16:50 Board Certified Radiologist. This report was verified electronically.
--- NOTE | 2018-03-30 18:06 | MB ---
cc: Praful Baum MD, Joshua A MD DATE: 03/30/2018 REASON FOR CONSULTATION: Congestive heart failure, atrial fibrillation, chest pain. CHIEF COMPLAINT: Chest pain. HISTORY OF PRESENT ILLNESS: The patient is a 77-year-old white female, followed in our office by Dr. Armen Ramírez, with a history of multiple medical problems including coronary artery disease, diabetes, carotid disease, peripheral vascular disease, history of congestive heart failure, hypertension, paroxysmal atrial fibrillation, who presented to the hospital with a 2 week history of increasing shortness of breath. She was found to be in congestive heart failure, as well as atrial fibrillation with a rapid ventricular response. In the last 2 weeks she has also had 2 pillow orthopnea as well as occasional paroxysmal nocturnal dyspnea. She reports no change in chronic intermittent pedal edema. Over the last 4 or 5 days, she has also had intermittent episodes of substernal chest discomfort described as "pressure" occasionally radiating directly through to her back, associated with diaphoresis, without nausea or increased shortness of breath. The patient also denies palpitations, dizziness, syncope, near syncope, recent flu symptoms. The chest pains have never lasted more than a few minutes, and have had no definite relationship to exertion. PAST MEDICAL HISTORY: 1. Coronary artery disease apparently status post stenting of the right coronary a few years ago. Her last heart catheterization was 02/24/2014 showing a totally occluded but well collateralized right coronary artery and mild disease of the left coronary system. 2. Carotid disease with apparently chronically occluded left internal carotid artery. She is also status post CVA in 2011. 3. Possible history of congestive heart failure in 2010. 4. Diabetes. 5. Hyperlipidemia. 6. Hypertension. 7. Hypothyroidism. 8. Peripheral vascular disease with history of left superficial femoral artery stenting. On 01/07/2018 she underwent angioplasty of in-stent restenosis of the left superficial femoral artery stent using a drug-eluting balloon by Dr. Ant Shetty. 9. Remote history of uterine cancer. 10. Paroxysmal atrial fibrillation. CARDIAC MEDICATIONS AT HOME: 1. Pravastatin 20 mg at bedtime. 2. Aspirin 81 mg daily. 3. Eliquis 5 mg b.i.d. 4. Metoprolol succinate 100 mg daily. 5. Hydrochlorothiazide 12.5 mg daily. ALLERGIES: CODEINE. PROMETHAZINE. MORPHINE. FAMILY HISTORY: Noncontributory. SOCIAL HISTORY: The patient quit smoking in the 1950s. She denies alcohol abuse. REVIEW OF SYSTEMS: As in the History Of Present Illness, otherwise negative or noncontributory. She also denies headache, abdominal pain, melena, diarrhea, bright red blood per rectum, fevers. PHYSICAL EXAMINATION: VITAL SIGNS: Blood pressure 141/80 with a pulse of 90, respirations 20. GENERAL: She is a well-developed, well-nourished white female, in no acute distress. NECK: Jugular venous pressure is difficult to assess. Carotid pulses are 2+ bilaterally and without bruits. CHEST: Clear lung rey HEART: She has an irregularly irregular rhythm without definite S3 or murmur. ABDOMEN: On abdominal examination, she has a soft, obese, nontender abdomen. Bowel sounds are present. There is no definite hepatosplenomegaly. EXTREMITIES: Reveals no clubbing or cyanosis. There is trace pretibial edema bilaterally. EKG shows atrial fibrillation, inferior wall infarct, age undetermined, diffuse nonspecific ST and T-wave abnormalities. LABORATORY DATA: Normal CBC. Potassium 4.2, BUN 24, creatinine 1.58. Negative cardiac enzymes. Chest x-ray from today shows no acute disease. Chest x-ray from 03/29/2018 shows congestive heart failure. IMPRESSION: Congestive heart failure, somewhat atypical chest pains, recurrent atrial fibrillation with a rapid ventricular response in this 77-year-old white female with a history of multiple medical problems including coronary artery disease, carotid disease, peripheral vascular disease, diabetes, hypertension, paroxysmal atrial fibrillation. Her chest x-ray today shows resolution of the pulmonary edema seen on admission chest x-ray. Echocardiogram is pending. The precipitating factor for the congestive heart failure may be the atrial fibrillation. At this time, she remains in atrial fibrillation, although with much better heart rates. Overall, there is no definite evidence for acute coronary syndrome. Cardiac enzymes are negative for myocardial infarction. She has had some atypical chest discomforts the last 4-5 days. EKG shows nonspecific ST and T-wave abnormalities. RECOMMENDATIONS: 1. Await the 2-D echo. 2. Continue the metoprolol. 3. As she has had some increase in her renal indices, and her latest chest x-ray shows clearing of the pulmonary edema, would change intravenous Lasix to oral administration. 4. Check a Lexiscan nuclear stress test to assess her chest pains. 5. Continue anticoagulation therapy for her atrial fibrillation. 6. Consider an atrial fibrillation ablation procedure in the future. MD ERIC Rascon/ZENOBIA , 05:31 PM , 06:05 PM CRISTIAN
--- NOTE | 2018-03-30 20:01 | EKG ---
Date Performed: 03/29/2018 Time Performed: 16:05:14 PTAGE: 77 years EKG: Atrial fibrillation Consider Inferior infarct - age undetermined Anterolateral ST-T changes are nonspecific Abnormal ECG PREVIOUS TRACING : 03/29/2018 08.08.24 DOCTOR: Ronald Rocha Interpretating Date/Time 03/30/2018 20:00:09
--- NOTE | 2018-03-30 20:01 | EKG ---
Date Performed: 03/29/2018 Time Performed: 21:39:18 PTAGE: 77 years EKG: Atrial fibrillation Consider Inferior infarct - age undetermined Anterolateral T wave morales es are nonspecific Abnormal ECG PREVIOUS TRACING : 03/29/2018 16.05 DOCTOR: Ronald Rcoha Interpretating Date/Time 03/30/2018 20:00:27
[2018-03-30] MEDS: PRAVASTATIN SOD 20 MG TAB PO SCH (23:19)
[2018-03-30] MEDS ORDERED: PREGABALIN 25 MG CAP PO ONE (23:30)
[2018-03-30] MEDS ORDERED: PREGABALIN 75 MG CAP PO ONE (23:30)
[2018-03-31] VITALS (12 sets, daily range): BP systolic 103–142; BP diastolic 62–85; PULSE 83–126; RESP 17–20; TEMP 97.3–98; O2SAT 93–97
[2018-03-31] MEDS: HYDROmorphone HCL PF 0.5 MG/0.5 ML SYRINGE IV PUSH PRN ×4 (01:43→20:41)
[2018-03-31] MEDS: SODIUM CHLORIDE 0.9% FLUSH 10 ML FLUSH IV FLUSH PRN ×2 (01:43→04:57)
[2018-03-31 04:49] LABS: BACTERIA, URINE FEW /hpf; BILIRUBIN, URINE NEG (NEG); BLOOD, URINE NEG (NEG); GLUCOSE,URINE NEG (NEG); HYALINE CAST, URINE 2 /lpf (RARE); KETONE, URINE NEG (NEG); MUCUS URINE FEW /lpf (OCC); NITRITE,URINE NEG (NEG); SQUAMOUS EPITHELIAL CELL URINE 1 /hpf (0-5); URINE COLOR LIGHT-YELLOW (YELLW/STRAW); URINE LEUKOCYTE ESTERASE MOD (NEG)
[2018-03-31] MEDS: LEVOTHYROXINE SODIUM 125 MCG TAB PO SCH (04:56)
[2018-03-31 06:21] LABS: HEMATOCRIT 37.8 % (35.0-46.0); HEMOGLOBIN 12.4 GM/DL (11.6-15.3); MEAN CELL VOLUME 91.3 FL (80.0-100.0); MEAN CORPUSCULAR HEMOGLOBIN 29.9 PG (27.0-34.0); MEAN CORPUSCULAR HGB CONC 32.7 % (32.0-36.0); PLATELET COUNT 245 TH/MM3 (150-450); RED BLOOD COUNT 4.14 MIL/MM3 (4.00-5.30); RED CELL DISTRIBUTION WIDTH 14.4 % (11.6-17.2); WHITE BLOOD COUNT 10.7 TH/MM3 (4.0-11.0)
[2018-03-31 07:54] LABS: CREATININE 1.4 MG/DL (0.50-1.00)
[2018-03-31 07:55] LABS: BICARBONATE 31.8 MEQ/L (21.0-32.0); CALCIUM 9.5 MG/DL (8.5-10.1)
[2018-03-31] MEDS: INSULIN ASPART SUPPLEMENTAL SCALE SQ SCH ×4 (08:00→20:35)
[2018-03-31] MEDS: RESP: ALBUTEROL 2.5 MG/IPRATROPIUM 0.5 MG NEB (SCH) NEB ×4 (08:32→21:04)
[2018-03-31] MEDS: PETROLATUM 30 GM TUBE TOPICAL SCH ×2 (09:00→20:35)
[2018-03-31] MEDS: SODIUM CHLORIDE 0.9% FLUSH 10 ML FLUSH IV FLUSH SCH ×2 (09:00→20:33)
[2018-03-31] MEDS: INSULIN DETEMIR 100 UNITS/ML VIAL SQ SCH ×2 (09:00→20:34)
[2018-03-31] MEDS: oxyCODONE/ACETAMINOPHEN 10 MG/325 MG TAB PO PRN ×2 (09:27→15:35)
[2018-03-31] MEDS: METOPROLOL SUCCINATE 50 MG EXTENDED RELEASE TAB PO SCH ×2 (09:27→20:32)
[2018-03-31] MEDS: HYDROCHLOROTHIAZIDE 12.5 MG CAP PO SCH (09:27)
[2018-03-31] MEDS: CHOLECALCIFEROL (VIT D3) 1000 UNIT TAB PO SCH (09:28)
[2018-03-31] MEDS: FUROSEMIDE 40 MG TAB PO SCH (09:28)
[2018-03-31] MEDS: POTASSIUM CHLORIDE 20 MEQ CONTROLLED RELEASE TAB PO SCH ×2 (09:28→20:33)
[2018-03-31] MEDS: ASPIRIN 81 MG CHEW TAB CHEW SCH (09:28)
[2018-03-31] MEDS: APIXABAN 5 MG TABLET PO SCH (10:12)
[2018-03-31] MEDS: PREGABALIN 100 MG CAP PO SCH ×2 (10:12→20:32)
--- NOTE | 2018-03-31 10:22 | HHI.FPPN ---
Subjective Remarks Patient reports that her breathing is unchanged. She reports that the breathing treatments for likely help. Her main complaint is back pain. She reports a history of a nerve stimulator for sciatica as well as injections in her low back. She is complaining of low back pain in the same location as her chronic back pain. She is requesting more IV pain medication. She also reports a history of a stroke. She reports that at baseline she can only walk with a walker, and she can only walk as far as her kitchen before she gets too much dyspnea. (Zohaib Barrett MD R2) Objective Vitals Vital Signs Date Time Temp Pulse Resp B/P (MAP) Pulse Ox O2 Delivery O2 Flow Rate FiO2 03/31/18 08:34 96 03/31/18 08:00 96 Room Air 03/31/18 08:00 125 03/31/18 07:50 97.7 106 18 103/76 (85) 95 03/31/18 04:19 126 03/31/18 04:00 Room Air 03/31/18 04:00 97.6 117 20 142/85 (104) 93 03/31/18 00:00 Room Air 03/31/18 00:00 97.3 120 20 119/79 (92) 97 03/30/18 23:37 118 03/30/18 22:50 121 03/30/18 21:36 98 Nasal Cannula 2.00 03/30/18 20:55 98.2 124 18 159/92 (114) 97 03/30/18 18:09 102 03/30/18 17:30 107 03/30/18 16:42 97.8 96 20 141/80 (100) 100 03/30/18 16:42 84 03/30/18 14:26 99 03/30/18 12:55 114 03/30/18 12:50 18 03/30/18 12:29 18 03/30/18 11:13 98 Nasal Cannula 2.00 03/30/18 11:10 106 03/30/18 11:10 97.8 106 22 130/68 (88) 98 03/30/18 10:13 18 03/30/18 10:07 102 I/O 03/30/18 03/30/18 03/30/18 03/31/18 03/31/18 03/31/18 07:00 15:00 23:00 07:00 15:00 23:00 Intake Total 720 ml 640 ml 120 ml Output Total 600 ml 600 ml 500 ml Balance 120 ml 40 ml -380 ml Intake Oral 720 ml 640 ml 120 ml Output Urine Total 600 ml 600 ml 500 ml Bladder Scan Volume Amount 58 ml # Voids 1 # Bowel Movements 0 0 0 (Zohaib Barrett MD R2) Result Diagram: 03/31/18 0517 03/31/18 0517 Imaging Last Impressions Chest X-Ray 03/30/18 0000 Signed Impressions: Service Date/Time: Friday, March 30, 2018 09:41 - CONCLUSION: Mild hyperinflation without failure. Darwin Reece MD FACR Aorta CTA 03/30/18 Signed Impressions: Service Date/Time: Friday, March 30, 2018 15:51 - CONCLUSION: 1. Negative for aneurysm or dissection 2. Moderate coronary calcifications without pleural effusion 3. Mild cardiomegaly with trace effusion on the right 4. Spinal stimulator 5. Transpedicular lumbar fixation 6. No inflammatory changes in the chest or abdomen. Darwin Reece MD FACR Objective Remarks VITAL SIGNS: Pulse of 104, pulse ox of 96% on room air GENERAL: She is a well-developed, well-nourished obese white female, appears uncomfortable but in no acute distress. NECK: Jugular venous pressure is difficult to assess. Carotid pulses are 2+ bilaterally and without bruits. CHEST: Clear lung rey HEART: She has an irregularly irregular rhythm without definite S3 or murmur. ABDOMEN: On abdominal examination, she has a soft, obese, nontender abdomen. Bowel sounds are present. EXTREMITIES: Reveals no clubbing or cyanosis. There is trace pretibial edema bilaterally that is improved from yesterday. (Zohaib Barrett MD R2) A/P Assessment and Plan Patient is a 77-year-old female with a history of CAD, carotid artery stenosis, congestive heart failure, CVA, depression, type II diabetes, hypercholesterolemia, hypertension, hypothyroid, obesity, OR, paroxysmal A. fib , peripheral vascular disease who presents with progressively worsening dyspnea , found to have pulmonary edema consistent with acute on chronic CHF exacerbation and A. fib with RVR. Although initially managed with IV diuretics and rate control medication, patient denies clinical improvement. Thus, cardiology was consulted. Recommendations appreciated. Discharge Planning Pending echocardiogram, nuclear stress test, CM helping to arrange PT at rehab. (Zohaib Barrett MD R2) Attending Attestation Patient seen and examined. Case reviewed and discussed with the resident team. Agree with plan of care as discussed with me and documented in the resident note. (Lisa Briseno MD) Problem List: (1) Pulmonary edema ICD Codes: J81.1 - Chronic pulmonary edema Status: Resolved Plan: pulmonary edema consistent with acute on chronic CHF exacerbation -Cardiology consulted. Recommendations appreciated below: -Echocardiogram is pending -Continue home medication of metoprolol succinate ER 50 mg p.o. twice daily -changed Lasix 40 mg IV twice daily to oral administration of Lasix 40 mg p.o. daily -Check a Lexiscan nuclear stress test to assess her chest pains. -Diabetic diet with 2L fluid and 2g sodium restrictions -Daily weight -Monitor vital signs -Monitor I's and O's -Ordered incentive spirometer -Monitor BMP daily and replete potassium as needed -phototypesetting equipment monitor/telemetry -Oxygen as needed -Physical therapy consult recommended PT at rehab -Case management consult for discharge planning Congestive heart failure, somewhat atypical chest pains, recurrent atrial fibrillation with a rapid ventricular response in this 77-year-old white female with a history of multiple medical problems including coronary artery disease, carotid disease, peripheral vascular disease, diabetes, hypertension, paroxysmal atrial fibrillation. Her chest x-ray today shows resolution of the pulmonary edema seen on admission chest x-ray. . The precipitating factor for the congestive heart failure may be the atrial fibrillation. At this time, she remains in atrial fibrillation, although with much better heart rates. Overall, there is no definite evidence for acute coronary syndrome. Cardiac enzymes are negative for myocardial infarction. She has had some atypical chest discomforts the last 4-5 days. EKG shows nonspecific ST and T-wave abnormalities. RECOMMENDATIONS: 1. Await the 2-D echo. 2. Continue the metoprolol. 3. As she has had some increase in her renal indices, and her latest chest x-ray shows clearing of the pulmonary edema, would 4. (2) Chest pain ICD Codes: R07.9 - Chest pain, unspecified Status: Acute Plan: Patient reports exertional chest pain. ACS ruled out with q. 6 hour EKG and troponin. Aortogram negative for aneurysm or dissection. -Aspirin 81 mg p.o. qd -Continue home medications of statin, beta-william -Patient with allergy to morphine requested Dilaudid. Ordered Tylenol, Percocet , hydromorphone for breakthrough pain. Continued home medication of OxyContin starting today. -Cardiology consult. Recommendations appreciated below: -Check a Lexiscan nuclear stress test to assess her chest pains. (3) Atrial fibrillation with rapid ventricular response ICD Codes: I48.91 - Unspecified atrial fibrillation Status: Acute Plan: Patient with history of paroxysmal A. fib. -Continue home medication of metoprolol ER 50 mg p.o. twice daily for rate control -Continue anticoagulation therapy for her atrial fibrillation: Continue home medication of Eliquis 5 mg p.o. every 12 hours -Cardiology consulted. Recommendations appreciated below. -Consider an atrial fibrillation ablation procedure in the future. (4) Chronic back pain ICD Codes: M54.9 - Dorsalgia, unspecified; G89.29 - Other chronic pain Status: Chronic Plan: -Continued patient's home medication of OxyContin Contin 10 mg p.o. every 8 hours -Continue other as needed pain medications as above -Ordered soft mattress (5) Dysphagia ICD Codes: R13.10 - Dysphagia, unspecified Status: Resolved Plan: Patient complains of dysphagia to solids yesterday. -Speech therapy consulted and recommended continuing regular diet (6) Diabetes ICD Codes: E11.9 - Diabetes Status: Chronic Plan: Patient takes 40 units twice daily before meals of insulin lispro protamine-lispro 50-50. She also takes exenatide 2 mg subcu q. 7 days -Cut home insulin dose in half for long-acting insulin dose of Levemir 10 units subcu every 12 hours -Low sliding scale insulin -Hypoglycemia protocol ordered (7) Hypertension ICD Codes: I10 - Essential (primary) hypertension Status: Chronic Plan: -Continue home medication of metoprolol succinate ER 24 hours 50 mg p.o. twice daily -Continue home medication of hydrochlorothiazide 12.5 mg p.o. daily (8) Hypercholesteremia ICD Codes: E78.00 - Pure hypercholesterolemia, unspecified Status: Chronic Plan: -Continue home medication of pravastatin 20 g p.o. nightly (9) Neuropathy ICD Codes: G62.9 - Polyneuropathy, unspecified Plan: -Continue patient's home medication of Lyrica 100 mg p.o. twice daily (10) Hypothyroidism ICD Codes: E03.9 - Hypothyroidism, unspecified Plan: -Continue patient's home medication of levothyroxine 125 mcg p.o. daily (11) Vitamin D deficiency ICD Codes: E55.9 - Vitamin D deficiency, unspecified Plan: -Continue patient's home medication of cholecalciferol 2000 units p.o. daily (12) No contraindication to deep vein thrombosis (DVT) prophylaxis ICD Codes: Z78.9 - Other specified health status Plan: -Patient already on Eliquis -Continue home medication of Eliquis 5 mg p.o. every 12 hours (13) Nutrition, metabolism, and development symptoms ICD Codes: R63.8 - Other symptoms and signs concerning food and fluid intake Plan: Fluids: Held for CHF exacerbation, volume overload Electrolytes: Monitor and replete Nutrition: Diabetic diet with 2 L fluid restriction, 2 g sodium restriction GI prophylaxis: Not currently indicated (Zohaib Barrett MD R2) Problem Qualifiers (1) Pulmonary edema: Qualified Codes: J81.0 - Acute pulmonary edema Zohaib Barrett MD R2 March 31, 2018 10:22 Lisa Briseno MD March 31, 2018 14:03
[2018-03-31] MEDS ORDERED: REGADENOSON INJ 0.4 MG/5 ML SYR ONE (10:58)
[2018-03-31] MEDS: oxyCODONE HCL 10 MG CONTROLLED RELEASE TAB PO SCH ×2 (13:06→18:39)
--- NOTE | 2018-03-31 15:13 | PD.CARD.PN ---
Subjective Subjective Remarks Dyspnea overall improved. Brief substernal CP radiating to back this morning. No dizziness, palpitations. Slept very little last night. Objective Medications Item Value Date Time Furosemide 40 mg 03/31/18 0900 (Lasix) DAILY/PO 03/31/18927 Metoprolol 100 mg 03/30/182099 Succinate BID/PO 03/31/18926 (Toprol Xl) Potassium Chloride 20 meq 03/30/1800 (KCl) BID/PO 03/31/18927 Aspirin 81 mg 03/30/18899 (Aspirin Chew) DAILY/CHEW 03/31/18927 Pravastatin Sodium 20 mg 03/29/18 2100 (Pravachol) HS/PO 03/30/18 2319 Apixaban 5 mg 03/29/18 1100 (Eliquis) Q12H/PO 03/31/18 1012 Hydrochlorothiazide 12.5 mg 03/29/18 1100 (Microzide) DAILY/PO 03/31/18926 Current Medications Medications (Trade) Dose Ordered Sig/Isma Route Start Time Stop Time Status Last Admin (Lopressor Inj) 5 mg Q5M PRN IV PUSH 03/29/18 09:00 03/29/18 10:25 (NS Flush) 2 ml BID IV FLUSH 03/29/18 21:00 03/31/18 09:00 (NS Flush) 2 ml UNSCH PRN IV FLUSH 03/29/18 10:15 03/31/18 04:57 (KCl) 20 meq BID PO 03/30/18 09:00 03/31/18 09:28 (Tylenol) 650 mg Q6H PRN PO 03/29/18 11:00 (Colace) 100 mg BID PRN PO 03/29/18 11:00 (Xanax) 0.25 mg Q8H PRN PO 03/29/18 11:00 03/29/18 20:20 (Eliquis) 5 mg Q12H PO 03/29/18 11:00 03/31/18 10:12 (Aspirin Chew) 81 mg DAILY CHEW 03/30/18 09:00 03/31/18 09:28 (Vitamin D3) 2,000 units DAILY PO 03/29/18 11:00 03/31/18 09:28 (Microzide) 12.5 mg DAILY PO 03/29/18 11:00 03/31/18 09:27 (Synthroid) 125 mcg DAILY@0600 PO 03/29/18 11:00 03/31/18 04:56 (Pravachol) 20 mg HS PO 03/29/18 21:00 03/30/18 23:19 (Lyrica) 100 mg BID PO 03/29/18 11:00 03/31/18 10:12 (D50w (Vial) Inj) 50 ml UNSCH PRN IV PUSH 03/29/18 11:00 (Glucagon Inj) 1 mg UNSCH PRN OTHER 03/29/18 11:00 (NovoLOG SUPPLEMENTAL SCALE) 1 ACHS SLIDING SCALE SQ 03/29/18 12:00 03/30/18 23:28 (Levemir Inj) 10 units Q12HR SQ 03/29/18 21:00 03/31/18 09:00 (Tylenol) 650 mg Q6H PRN PO 03/29/18 11:15 (Percocet 5-325 Mg) 1 tab Q6H PRN PO 03/29/18 11:15 (Percocet 10-325 Mg) 1 tab Q6H PRN PO 03/29/18 11:15 03/31/18 09:27 (Dilaudid Pf Inj) 0.5 mg Q3H PRN IV PUSH 03/29/18 11:15 03/31/18 13:07 (Narcan Inj) 0.4 mg UNSCH PRN IV PUSH 03/29/18 11:15 (Zofran Odt) 4 mg Q6H PRN PO 03/29/18 11:15 (Duoneb Neb) 1 ampule Q4HR WHILE AWAKE NEB NEB 03/30/18 12:00 03/31/18 08:32 (Vaseline Oint) 1 applic BID TOPICAL 03/30/18 10:30 03/31/18 09:00 (Toprol Xl) 100 mg BID PO 03/30/18 21:00 03/31/18 09:27 (Lasix) 40 mg DAILY PO 03/31/18 09:00 03/31/18 09:28 (OxyCONTIN CR) 10 mg Q8H PO 03/31/18 11:00 03/31/18 13:06 Vital Signs / I&O Vital Signs Date Time Temp Pulse Resp B/P (MAP) Pulse Ox O2 Delivery O2 Flow Rate FiO2 03/31/18 13:46 95 Room Air 03/31/18 12:55 97.3 103 18 115/76 (89) 95 03/31/18 08:34 96 03/31/18 08:00 96 Room Air 03/31/18 08:00 125 03/31/18 07:50 97.7 106 18 103/76 (85) 95 03/31/18 04:19 126 03/31/18 04:00 Room Air 03/31/18 04:00 97.6 117 20 142/85 (104) 93 03/31/18 00:00 Room Air 03/31/18 00:00 97.3 120 20 119/79 (92) 97 03/30/18 23:37 118 03/30/18 22:50 121 03/30/18 21:36 98 Nasal Cannula 2.00 03/30/18 20:55 98.2 124 18 159/92 (114) 97 03/30/18 18:09 102 03/30/18 17:30 107 03/30/18 16:42 97.8 96 20 141/80 (100) 100 03/30/18 16:42 84 I/O 03/30/18 03/30/18 03/30/18 03/31/18 03/31/18 03/31/18 06:59 14:59 22:59 06:59 14:59 22:59 Intake Total 720 ml 640 ml 120 ml Output Total 600 ml 600 ml 500 ml Balance 120 ml 40 ml -380 ml Intake Oral 720 ml 640 ml 120 ml Output Urine Total 600 ml 600 ml 500 ml Bladder Scan Volume Amount 58 ml # Voids 1 # Bowel Movements 0 0 0 Physical Exam GENERAL: Well developed, well nourished. No acute distress. HEENT: Jugular venous pressure is normal. CHEST: Lungs clear to auscultation bilaterally. Unlabored respiratory effort. CARDIAC: Irregular rate and rhythm without S3, S4, or murmur. ABDOMEN: Soft, nontender, no hepatosplenomegaly. Bowel sounds present. EXTREMITIES: No clubbing, cyanosis. 1+ pretibial edema. Laboratory Laboratory Tests Test 03/31/18 04:16 03/31/18 05:17 03/31/18 14:11 Urine Color LIGHT-YELLOW Urine Turbidity CLEAR Urine pH 5.0 Urine Specific [place] 1.010 Urine Protein NEG mg/dL Urine Glucose (UA) NEG mg/dL Urine Ketones NEG mg/dL Urine Occult Blood NEG Urine Nitrite NEG Urine Bilirubin NEG Urine Urobilinogen LESS THAN 2.0 MG/DL Urine Leukocyte Esterase MOD Urine WBC 5 /hpf Urine Squamous Epithelial Cells 1 /hpf Urine Bacteria FEW /hpf Urine Hyaline Casts 2 /lpf Urine Mucus FEW /lpf Microscopic Urinalysis Comment CULT NOT INDICATED White Blood Count 10.7 TH/MM3 Red Blood Count 4.14 MIL/MM3 Hemoglobin 12.4 GM/DL Hematocrit 37.8 % Mean Corpuscular Volume 91.3 FL Mean Corpuscular Hemoglobin 29.9 PG Mean Corpuscular Hemoglobin Concent 32.7 % Red Cell Distribution Width 14.4 % Platelet Count 245 TH/MM3 Mean Platelet Volume 10.0 FL Blood Urea Nitrogen 26 MG/DL Creatinine 1.40 MG/DL Random Glucose 160 MG/DL Calcium Level 9.5 MG/DL Sodium Level 138 MEQ/L Potassium Level 3.9 MEQ/L Chloride Level 96 MEQ/L Carbon Dioxide Level 31.8 MEQ/L Anion Gap 10 MEQ/L Estimat Glomerular Filtration Rate 36 ML/MIN B-Type Natriuretic Peptide 162 PG/ML Thyroid Stimulating Hormone 3rd Gen 1.580 uIU/ML Assessment and Plan Problem List: (1) Congestive heart failure (CHF) ICD Codes: I50.9 - Heart failure, unspecified Status: Acute Plan: Symptomatically improved since admission. Echo still pending. Renal indices better. BNP down to 162. CHF possibly precipitated by atrial fib. REC await echo optimize atrial fib HR control continue beta william (2) Paroxysmal atrial fibrillation ICD Codes: I48.0 - Paroxysmal atrial fibrillation Status: Acute Plan: Remains in atrial fib. HR's still mildly increased, at rest. REC continue apixaban continue metoprolol try to add diltiazem, consider digoxin for better HR control (3) CAD (coronary artery disease) ICD Codes: I25.10 - Atherosclerotic heart disease of [place] coronary artery without angina pectoris Status: Chronic Plan: Brief recurrent CP this morning, o/w stable. Awaiting completion of nuclear stress test imaging. Recommend cath only if major ischemia demonstrated in LAD or left circumflex territories. Patient with known chronically occluded, collateralized RCA. (4) Hypertension ICD Codes: I10 - Essential (primary) hypertension Status: Chronic Plan: Stable. Normotensive. Code Status full code Discussed Condition With patient Problem Qualifiers (1) Congestive heart failure (CHF): Qualified Codes: I50.9 - Heart failure, unspecified (2) CAD (coronary artery disease): Qualified Codes: I25.119 - Atherosclerotic heart disease of [place] coronary artery with unspecified angina pectoris (3) Hypertension: Qualified Codes: I10 - Essential (primary) hypertension Praful Baum MD March 31, 2018 15:13
[2018-03-31] MEDS ORDERED: DILTIAZEM HCL 60 MG TAB PO SCH (18:00)
[2018-03-31] MEDS: PRAVASTATIN SOD 20 MG TAB PO SCH (20:32)
[2018-04-01] VITALS (13 sets, daily range): BP systolic 105–134; BP diastolic 55–83; PULSE 57–111; RESP 14–19; TEMP 97.3–97.9; O2SAT 95–99
[2018-04-01] MEDS: APIXABAN 5 MG TABLET PO SCH ×3 (00:25→21:37)
[2018-04-01] MEDS: oxyCODONE HCL 10 MG CONTROLLED RELEASE TAB PO SCH ×3 (03:52→18:49)
[2018-04-01] MEDS: LEVOTHYROXINE SODIUM 125 MCG TAB PO SCH (05:03)
[2018-04-01] MEDS: RESP: ALBUTEROL 2.5 MG/IPRATROPIUM 0.5 MG NEB (SCH) NEB ×4 (08:00→19:25)
[2018-04-01] MEDS ORDERED: HYDROmorphone HCL PF 0.5 MG/0.5 ML SYRINGE IV PUSH ONE (08:30)
--- NOTE | 2018-04-01 08:31 | PD.CARD.PN ---
Subjective Subjective Remarks Mild dyspnea this morning. Nonradiating substernal chest pressure this morning for past few minutes. No dizziness, palpitations. Slept better. Objective Medications Item Value Date Time Diltiazem HCl 60 mg 03/31/18 1800 (Cardizem) TID/PO 03/31/18 174 Furosemide 40 mg 03/31/18 0900 (Lasix) DAILY/PO 03/31/18927 Metoprolol 100 mg 03/30/18 2100 Succinate BID/PO 03/31/182031 (Toprol Xl) Potassium Chloride 20 meq 03/30/18899 (KCl) BID/PO 03/31/182032 Aspirin 81 mg 03/30/18899 (Aspirin Chew) DAILY/CHEW 03/31/18927 Pravastatin Sodium 20 mg 03/29/18 2100 (Pravachol) HS/PO 03/31/182031 Apixaban 5 mg 03/29/18 1100 (Eliquis) Q12H/PO 04/01/1824 Hydrochlorothiazide 12.5 mg 03/29/18 1100 (Microzide) DAILY/PO 03/31/18926 Current Medications Medications (Trade) Dose Ordered Sig/Isma Route Start Time Stop Time Status Last Admin (Lopressor Inj) 5 mg Q5M PRN IV PUSH 03/29/18 09:00 03/29/18 10:25 (NS Flush) 2 ml BID IV FLUSH 03/29/18 21:00 03/31/18 20:33 (NS Flush) 2 ml UNSCH PRN IV FLUSH 03/29/18 10:15 03/31/18 04:57 (KCl) 20 meq BID PO 03/30/18 09:00 03/31/18 20:33 (Tylenol) 650 mg Q6H PRN PO 03/29/18 11:00 (Colace) 100 mg BID PRN PO 03/29/18 11:00 (Xanax) 0.25 mg Q8H PRN PO 03/29/18 11:00 03/29/18 20:20 (Eliquis) 5 mg Q12H PO 03/29/18 11:00 04/01/18 00:25 (Aspirin Chew) 81 mg DAILY CHEW 03/30/18 09:00 03/31/18 09:28 (Vitamin D3) 2,000 units DAILY PO 03/29/18 11:00 03/31/18 09:28 (Microzide) 12.5 mg DAILY PO 03/29/18 11:00 03/31/18 09:27 (Synthroid) 125 mcg DAILY@0600 PO 03/29/18 11:00 04/01/18 05:03 (Pravachol) 20 mg HS PO 03/29/18 21:00 03/31/18 20:32 (Lyrica) 100 mg BID PO 03/29/18 11:00 03/31/18 20:32 (D50w (Vial) Inj) 50 ml UNSCH PRN IV PUSH 03/29/18 11:00 (Glucagon Inj) 1 mg UNSCH PRN OTHER 03/29/18 11:00 (NovoLOG SUPPLEMENTAL SCALE) 1 ACHS SLIDING SCALE SQ 03/29/18 12:00 03/31/18 20:35 (Levemir Inj) 10 units Q12HR SQ 03/29/18 21:00 03/31/18 20:34 (Tylenol) 650 mg Q6H PRN PO 03/29/18 11:15 (Percocet 5-325 Mg) 1 tab Q6H PRN PO 03/29/18 11:15 (Percocet 10-325 Mg) 1 tab Q6H PRN PO 03/29/18 11:15 03/31/18 15:35 (Dilaudid Pf Inj) 0.5 mg Q3H PRN IV PUSH 03/29/18 11:15 03/31/18 20:41 (Narcan Inj) 0.4 mg UNSCH PRN IV PUSH 03/29/18 11:15 (Zofran Odt) 4 mg Q6H PRN PO 03/29/18 11:15 (Duoneb Neb) 1 ampule Q4HR WHILE AWAKE NEB NEB 03/30/18 12:00 03/31/18 21:04 (Vaseline Oint) 1 applic BID TOPICAL 03/30/18 10:30 03/31/18 20:35 (Toprol Xl) 100 mg BID PO 03/30/18 21:00 03/31/18 20:32 (Lasix) 40 mg DAILY PO 03/31/18 09:00 03/31/18 09:28 (OxyCONTIN CR) 10 mg Q8H PO 03/31/18 11:00 04/01/18 03:52 (Cardizem) 60 mg TID PO 03/31/18 18:00 03/31/18 17:44 Vital Signs / I&O Vital Signs Date Time Temp Pulse Resp B/P (MAP) Pulse Ox O2 Delivery O2 Flow Rate FiO2 04/01/18 04:00 97.4 107 14 134/70 (91) 99 04/01/18 03:36 90 04/01/18 00:16 111 04/01/18 00:00 97.4 110 16 126/83 (97) 97 03/31/18 21:06 93 Nasal Cannula 2.00 03/31/18 20:16 101 03/31/18 20:00 98.0 101 17 115/62 (79) 96 03/31/18 20:00 Room Air 03/31/18 16:34 83 03/31/18 16:34 96 Room Air 03/31/18 16:20 97.3 105 20 141/70 (93) 96 03/31/18 13:46 95 Room Air 03/31/18 12:55 97.3 103 18 115/76 (89) 95 03/31/18 08:34 96 I/O 03/31/18 03/31/18 03/31/18 04/01/18 04/01/18 04/01/18 06:59 14:59 22:59 06:59 14:59 22:59 Intake Total 120 ml 600 ml 300 ml Output Total 500 ml 600 ml 500 ml Balance -380 ml 0 ml -200 ml Intake Oral 120 ml 600 ml 300 ml Output Urine Total 500 ml 600 ml 500 ml Bladder Scan Volume Amount 58 ml # Voids 1 1 # Bowel Movements 0 Physical Exam GENERAL: Well developed, well nourished. No acute distress. HEENT: Jugular venous pressure is normal. CHEST: Lungs clear to auscultation bilaterally. Unlabored respiratory effort. CARDIAC: Irregular rate and rhythm without S3, S4, or murmur. ABDOMEN: Soft, nontender, no hepatosplenomegaly. Bowel sounds present. EXTREMITIES: No clubbing, cyanosis. Trace to 1+ pretibial edema. Laboratory Laboratory Tests Test 03/31/18 14:11 03/31/18 20:11 Thyroid Stimulating Hormone 3rd Gen 1.580 uIU/ML B-Type Natriuretic Peptide 226 PG/ML Assessment and Plan Problem List: (1) Congestive heart failure (CHF) ICD Codes: I50.9 - Heart failure, unspecified Status: Acute Plan: Symptomatically improved since admission. Echo still pending. BMP pending. CHF possibly precipitated by atrial fib. REC await echo optimize atrial fib HR control continue beta william (2) Paroxysmal atrial fibrillation ICD Codes: I48.0 - Paroxysmal atrial fibrillation Status: Acute Plan: Remains in atrial fib. HR control still somewhat suboptimal. REC continue apixaban continue metoprolol increase diltiazem dosing (3) CAD (coronary artery disease) ICD Codes: I25.10 - Atherosclerotic heart disease of [place] coronary artery without angina pectoris Status: Chronic Plan: Continued brief CP's. Awaiting completion of nuclear stress test imaging this morning. Recommend cath only if major ischemia demonstrated in LAD or left circumflex territories. Patient with known chronically occluded, collateralized RCA. Add oral nitrate. (4) Hypertension ICD Codes: I10 - Essential (primary) hypertension Status: Chronic Plan: Stable. Normotensive. Code Status full code Discussed Condition With patient Problem Qualifiers (1) Congestive heart failure (CHF): Qualified Codes: I50.9 - Heart failure, unspecified (2) CAD (coronary artery disease): Qualified Codes: I25.119 - Atherosclerotic heart disease of [place] coronary artery with unspecified angina pectoris (3) Hypertension: Qualified Codes: I10 - Essential (primary) hypertension Praful Baum MD April 01, 2018 08:31
[2018-04-01] MEDS: oxyCODONE/ACETAMINOPHEN 10 MG/325 MG TAB PO PRN ×2 (08:34→17:00)
[2018-04-01 08:43] LABS: HEMATOCRIT 39.6 % (35.0-46.0); HEMOGLOBIN 12.9 GM/DL (11.6-15.3); MEAN CELL VOLUME 91.5 FL (80.0-100.0); MEAN CORPUSCULAR HEMOGLOBIN 29.7 PG (27.0-34.0); MEAN CORPUSCULAR HGB CONC 32.5 % (32.0-36.0); MEAN PLATELET VOLUME 9.7 FL (7.0-11.0); PLATELET COUNT 265 TH/MM3 (150-450); RED BLOOD COUNT 4.33 MIL/MM3 (4.00-5.30); RED CELL DISTRIBUTION WIDTH 14.8 % (11.6-17.2); WHITE BLOOD COUNT 8.7 TH/MM3 (4.0-11.0)
[2018-04-01] MEDS: PETROLATUM 30 GM TUBE TOPICAL SCH ×2 (09:00→21:28)
[2018-04-01 09:09] LABS: BICARBONATE 34.6 MEQ/L (21.0-32.0); CALCIUM 9.4 MG/DL (8.5-10.1); CREATININE 1.11 MG/DL (0.50-1.00)
[2018-04-01] MEDS: DILTIAZEM HCL 90 MG TAB PO SCH ×3 (09:54→17:00)
[2018-04-01] MEDS: ISOSORBIDE MONONITRATE 60 MG CR TAB (IMDUR) PO SCH (09:54)
[2018-04-01] MEDS: SODIUM CHLORIDE 0.9% FLUSH 10 ML FLUSH IV FLUSH SCH ×2 (09:54→21:27)
[2018-04-01] MEDS: PREGABALIN 100 MG CAP PO SCH ×2 (09:55→21:27)
[2018-04-01] MEDS: CHOLECALCIFEROL (VIT D3) 1000 UNIT TAB PO SCH (09:55)
[2018-04-01] MEDS: METOPROLOL SUCCINATE 50 MG EXTENDED RELEASE TAB PO SCH ×2 (09:55→21:27)
[2018-04-01] MEDS: ASPIRIN 81 MG CHEW TAB CHEW SCH (09:55)
[2018-04-01] MEDS: FUROSEMIDE 40 MG TAB PO SCH (09:55)
[2018-04-01] MEDS: POTASSIUM CHLORIDE 20 MEQ CONTROLLED RELEASE TAB PO SCH ×2 (09:55→21:27)
[2018-04-01] MEDS: HYDROCHLOROTHIAZIDE 12.5 MG CAP PO SCH (09:55)
[2018-04-01] MEDS: INSULIN DETEMIR 100 UNITS/ML VIAL SQ SCH ×2 (09:56→21:28)
[2018-04-01] MEDS: INSULIN ASPART SUPPLEMENTAL SCALE SQ SCH ×4 (09:56→21:00)
--- NOTE | 2018-04-01 10:14 | RADRPT ---
EXAM DATE/TIME: 03/31/2018 12:12 [facility] COMPARISON: No previous studies available for comparison. INDICATIONS : Substernal chest pain radiating to the back with diaphoresis and dyspnea. Abnormal EKG. Atrial fibril lation. DOSE: 30.1 mCi Tc99m Myoview at stress. 30.1 mCi Tc99m Myoview at rest. 0.4 mg Lexiscan STRESS SYMPTOMS: None. EJECTION FRACTION: 44% MEDICAL HISTORY : Myocardial infarction. Diabetes mellitus type 2. Hypercholesterolemia. Hypertension. GERD. Stroke. SURGICAL HISTORY : Coronary artery stent. Hysterectomy. Appendectomy. ENCOUNTER: Initial ACUITY: 4 - 6 days PAIN SCALE: 4/10 LOCATION: Substernal chest TECHNIQUE: The patient underwent pharmacologic stress with infusion of prescribed dose. Continuous ECG tracing was monitored during stress. Gated SPECT imaging was performed after stress and conventional SPECT i maging was performed at rest. The examination was performed on a SPECT/CT scanner, both attenuation and non-corrected datasets were reviewed. FINDINGS: DISTRIBUTION: The maximum perfused segment at stress is in the anteroseptal wall. PERFUSION STUDY: Fixed defect in the inferior wall. No stress-induced perfusion defect. GATED STUDY: Global hypokinesia with focal akinesia of the apical wall. CONCLUSION: 1. Inferior wall infarct. 2. No significant stress-induced ischemia. 3. Global hypokinesia with focal apical wall akinesia. Reduced EF of 44%. RISK CATEGORY: Intermediate (1-3% Annual Mortality Rate) Lauri Clark MD on April 01, 2018 at 9:41 Board Certified Radiologist. This report was verified electronically.
--- NOTE | 2018-04-01 17:08 | HHI.FPPN ---
Subjective Remarks Patient had her stress test this morning. Patient reports that yesterday she felt back to baseline but today she feels that her breathing is slightly worse. Patient reports an episode of vomiting after breakfast. She also complains of some dry cough. She also complains of shortness of breath with lying flat, which seems to be at baseline. (Zohaib Barrett MD R2) Objective Vitals Vital Signs Date Time Temp Pulse Resp B/P (MAP) Pulse Ox O2 Delivery O2 Flow Rate FiO2 04/01/18 16:08 97.3 69 18 114/55 (74) 95 04/01/18 15:21 97 Nasal Cannula 2.00 04/01/18 12:08 97.6 93 18 105/55 (72) 95 04/01/18 12:01 98 Nasal Cannula 3.00 04/01/18 12:00 96 04/01/18 12:00 Room Air 04/01/18 08:08 97.8 91 17 113/76 (88) 95 04/01/18 08:00 Room Air 04/01/18 07:30 92 04/01/18 04:00 97.4 107 14 134/70 (91) 99 04/01/18 03:36 90 04/01/18 00:16 111 04/01/18 00:00 97.4 110 16 126/83 (97) 97 03/31/18 21:06 93 Nasal Cannula 2.00 03/31/18 20:16 101 03/31/18 20:00 98.0 101 17 115/62 (79) 96 03/31/18 20:00 Room Air I/O 03/31/18 03/31/18 03/31/18 04/01/18 04/01/18 04/01/18 07:00 15:00 23:00 07:00 15:00 23:00 Intake Total 120 ml 600 ml 300 ml Output Total 500 ml 600 ml 500 ml Balance -380 ml 0 ml -200 ml Intake Oral 120 ml 600 ml 300 ml Output Urine Total 500 ml 600 ml 500 ml Bladder Scan Volume Amount 58 ml # Voids 1 1 # Bowel Movements 0 (Zohaib Barrett MD R2) Result Diagram: 04/01/18 0816 04/01/18 0816 Imaging Last Impressions Myocardial Perfusion Scan Nuc Med 03/31/18 0000 Signed Impressions: Service Date/Time: Saturday, March 31, 2018 12:12 - CONCLUSION: 1. Inferior wall infarct. 2. No significant stress-induced ischemia. 3. Global hypokinesia with focal apical wall akinesia. Reduced EF of 44%%. RISK CATEGORY: Intermediate (1-3%% Annual Mortality Rate) Lauri Clark MD Chest X-Ray 03/30/18 0000 Signed Impressions: Service Date/Time: Friday, March 30, 2018 09:41 - CONCLUSION: Mild hyperinflation without failure. Darwin Reece MD FACR Aorta CTA 03/30/18 0000 Signed Impressions: Service Date/Time: Friday, March 30, 2018 15:51 - CONCLUSION: 1. Negative for aneurysm or dissection 2. Moderate coronary calcifications without pleural effusion 3. Mild cardiomegaly with trace effusion on the right 4. Spinal stimulator 5. Transpedicular lumbar fixation 6. No inflammatory changes in the chest or abdomen. Darwin Reece MD FACR Objective Remarks GENERAL: She is a well-developed, well-nourished obese white female in no acute distress. RESP: Clear lung rey bilaterally with no wheezing, rhonchi, rales. HEART: She has an irregularly irregular rhythm without definite S3 or murmur. ABDOMEN: On abdominal examination, she has a soft, obese, nontender abdomen. EXTREMITIES: Reveals no clubbing or cyanosis. 1+ pitting edema to [place] bilaterally. (Zohaib Barrett MD R2) A/P Assessment and Plan Patient is a 77-year-old female with a history of CAD, carotid artery stenosis, congestive heart failure, CVA, depression, type II diabetes, hypercholesterolemia, hypertension, hypothyroid, obesity, [place], paroxysmal A. fib , peripheral vascular disease who presents with progressively worsening dyspnea , found to have pulmonary edema consistent with acute on chronic CHF exacerbation and A. fib with RVR. Although initially managed with IV diuretics and rate control medication, patient denies clinical improvement. Thus, cardiology was consulted. Recommendations appreciated. Discharge Planning Pending echocardiogram, CM helping to arrange PT at rehab. (Zohaib Barrett MD R2) Attending Attestation Patient seen and examined. Case reviewed and discussed with the resident team. Agree with plan of care as discussed with me and documented in the resident note. This patient has improved and clinically stable. She no longer is SOB and no CP which is why she was admitted. Patient has an element of deconditioning and would benefit from dc to Rehab. If she declines can consider dc to home with HH for PT/OT. (Lisa Briseno MD) Problem List: (1) Pulmonary edema ICD Codes: J81.1 - Chronic pulmonary edema Status: Resolved Plan: pulmonary edema consistent with acute on chronic CHF exacerbation -Cardiology consulted. Recommendations appreciated -Echocardiogram is pending -Continue home medication of metoprolol succinate ER 50 mg p.o. twice daily -Lasix 40 mg p.o. daily -Lexiscan nuclear stress test done and resulted this morning -Diabetic diet with 2L fluid and 2g sodium restrictions -Daily weight -Monitor vital signs -Monitor I's and O's -Ordered incentive spirometer -Monitor BMP daily and replete potassium as needed -alarm security or surveillance monitor/telemetry -Oxygen as needed -Physical therapy consult recommended PT at rehab -Case management consult has arranged for PT at rehab (2) Chest pain ICD Codes: R07.9 - Chest pain, unspecified Status: Acute Plan: Patient reports exertional chest pain. ACS ruled out with q. 6 hour EKG and troponin. Aortogram negative for aneurysm or dissection. -Aspirin 81 mg p.o. qd -Continue home medications of statin, beta-william -Patient with allergy to morphine requested Dilaudid. Ordered Tylenol, Percocet , hydromorphone for breakthrough pain. Continued home medication of OxyContin -Cardiology consult. Recommendations appreciated below: -Lexiscan nuclear stress test done and resulted (3) Atrial fibrillation with rapid ventricular response ICD Codes: I48.91 - Unspecified atrial fibrillation Status: Acute Plan: Patient with history of paroxysmal A. fib. -Continue home medication of metoprolol ER 50 mg p.o. twice daily for rate control -Continue anticoagulation therapy for her atrial fibrillation: Continue home medication of Eliquis 5 mg p.o. every 12 hours -Diltiazem 60 mg p.o. 3 times daily increased to 90 mg p.o. 3 times daily, per cardiology -Cardiology consulted. Recommendations appreciated -Consider an atrial fibrillation ablation procedure in the future. (4) Chronic back pain ICD Codes: M54.9 - Dorsalgia, unspecified; G89.29 - Other chronic pain Status: Chronic Plan: -Continued patient's home medication of OxyContin Contin 10 mg p.o. every 8 hours -Continue other as needed pain medications as above -Ordered soft mattress (5) Diabetes ICD Codes: E11.9 - Diabetes Status: Chronic Plan: Patient takes 40 units twice daily before meals of insulin lispro protamine-lispro 50-50. She also takes exenatide 2 mg subcu q. 7 days -Cut home insulin dose in half for long-acting insulin dose of Levemir 10 units subcu every 12 hours -Low sliding scale insulin -Hypoglycemia protocol ordered (6) Hypertension ICD Codes: I10 - Essential (primary) hypertension Status: Chronic Plan: -Continue home medication of metoprolol succinate ER 24 hours 50 mg p.o. twice daily -Continue home medication of hydrochlorothiazide 12.5 mg p.o. daily -Diltiazem increased from 60 mg to 90 mg p.o. 3 times daily (7) Hypercholesteremia ICD Codes: E78.00 - Pure hypercholesterolemia, unspecified Status: Chronic Plan: -Continue home medication of pravastatin 20 g p.o. nightly (8) Neuropathy ICD Codes: G62.9 - Polyneuropathy, unspecified Plan: -Continue patient's home medication of Lyrica 100 mg p.o. twice daily (9) Hypothyroidism ICD Codes: E03.9 - Hypothyroidism, unspecified Plan: -Continue patient's home medication of levothyroxine 125 mcg p.o. daily (10) Vitamin D deficiency ICD Codes: E55.9 - Vitamin D deficiency, unspecified Plan: -Continue patient's home medication of cholecalciferol 2000 units p.o. daily (11) No contraindication to deep vein thrombosis (DVT) prophylaxis ICD Codes: Z78.9 - Other specified health status Plan: -Patient already on Eliquis -Continue home medication of Eliquis 5 mg p.o. every 12 hours (12) Nutrition, metabolism, and development symptoms ICD Codes: R63.8 - Other symptoms and signs concerning food and fluid intake Plan: Fluids: Held for CHF exacerbation, volume overload, tolerated PO Electrolytes: Monitor and replete Nutrition: Diabetic diet with 2 L fluid restriction, 2 g sodium restriction GI prophylaxis: Not currently indicated (Zohaib Barrett MD R2) Problem Qualifiers (1) Pulmonary edema: Qualified Codes: J81.0 - Acute pulmonary edema (2) Hypertension: Qualified Codes: I10 - Essential (primary) hypertension Zohaib Barrett MD R2 April 01, 2018 17:08 Lisa Briseno MD April 02, 2018 14:15
[2018-04-01] MEDS: PRAVASTATIN SOD 20 MG TAB PO SCH (21:27)
[2018-04-01] MEDS: METOCLOPRAMIDE HCL 10 MG/2 ML VIAL IV PUSH PRN (21:27)
[2018-04-02] VITALS (10 sets, daily range): BP systolic 109–127; BP diastolic 60–70; PULSE 63–84; RESP 18; TEMP 97–98; O2SAT 91–100
[2018-04-02] MEDS: oxyCODONE HCL 10 MG CONTROLLED RELEASE TAB PO SCH ×3 (02:29→18:16)
[2018-04-02] MEDS: LEVOTHYROXINE SODIUM 125 MCG TAB PO SCH (06:37)
[2018-04-02 07:19] LABS: AUTOMATED NEUTROPHIL # 7.4 TH/MM3 (1.8-7.7); BASOPHIL % 0.3 % (0.0-2.0); EOSINOPHIL # 0.2 TH/MM3 (0-0.4); EOSINOPHIL % 2.4 % (0.0-4.0); HEMATOCRIT 37.4 % (35.0-46.0); HEMOGLOBIN 12.2 GM/DL (11.6-15.3); LYMPH % 13.3 % (9.0-44.0); LYMPHOCYTE # 1.3 TH/MM3 (1.0-4.8); MEAN CELL VOLUME 92.1 FL (80.0-100.0); MEAN CORPUSCULAR HEMOGLOBIN 30.1 PG (27.0-34.0); MEAN CORPUSCULAR HGB CONC 32.6 % (32.0-36.0); MONO % 8.5 % (0.0-8.0); MONOCYTE # 0.8 TH/MM3 (0-0.9); NEUT % 75.5 % (16.0-70.0); PLATELET COUNT 249 TH/MM3 (150-450); RED BLOOD COUNT 4.06 MIL/MM3 (4.00-5.30); RED CELL DISTRIBUTION WIDTH 14.6 % (11.6-17.2); WHITE BLOOD COUNT 9.8 TH/MM3 (4.0-11.0)
[2018-04-02 07:33] LABS: ALT (GPT) 21 U/L (10-53); AST (GOT) 16 U/L (15-37); BICARBONATE 34.3 MEQ/L (21.0-32.0); BLOOD UREA NITROGEN 25 MG/DL (7-18); CALCIUM 9.4 MG/DL (8.5-10.1); CHLORIDE 94 MEQ/L (98-107); CREATININE 1.23 MG/DL (0.50-1.00); GLOMERULAR FILTRATION RATE 42 ML/MIN (>89); GLUCOSE,RANDOM 194 MG/DL (74-106); SODIUM (NA) 136 MEQ/L (136-145)
[2018-04-02 07:35] LABS: ALKALINE PHOSPHATASE 85 U/L (45-117); TOTAL BILIRUBIN ADULT 0.5 MG/DL (0.2-1.0); TOTAL PROTEIN 6.8 GM/DL (6.4-8.2)
--- NOTE | 2018-04-02 08:39 | PD.CARD.PN ---
Subjective Subjective Remarks Nonradiating substernal chest pressure this morning for few minutes. No dizziness, palpitations, dyspnea. Objective Medications Item Value Date Time Diltiazem HCl 90 mg 04/01/18 0900 (Cardizem) TID/PO 04/01/18 1700 Isosorbide 60 mg 04/01/18 0900 Mononitrate DAILY/PO 04/01/18 0954 (Imdur) Furosemide 40 mg 03/31/18 0900 (Lasix) DAILY/PO 04/01/18 0955 Metoprolol 100 mg 03/30/18 2100 Succinate BID/PO 04/01/182126 (Toprol Xl) Potassium Chloride 20 meq 03/30/18 0900 (KCl) BID/PO 04/01/182126 Aspirin 81 mg 03/30/18 0900 (Aspirin Chew) DAILY/CHEW 04/01/18954 Pravastatin Sodium 20 mg 03/29/18 2100 (Pravachol) HS/PO 04/01/182126 Apixaban 5 mg 03/29/18 1100 (Eliquis) Q12H/PO 04/01/182136 Hydrochlorothiazide 12.5 mg 03/29/18 1100 (Microzide) DAILY/PO 04/01/18 09 Current Medications Medications (Trade) Dose Ordered Sig/Isma Route Start Time Stop Time Status Last Admin (Lopressor Inj) 5 mg Q5M PRN IV PUSH 03/29/18 09:00 03/29/18 10:25 (NS Flush) 2 ml BID IV FLUSH 03/29/18 21:00 04/01/18 21:27 (NS Flush) 2 ml UNSCH PRN IV FLUSH 03/29/18 10:15 03/31/18 04:57 (KCl) 20 meq BID PO 03/30/18 09:00 04/01/18 21:27 (Tylenol) 650 mg Q6H PRN PO 03/29/18 11:00 (Colace) 100 mg BID PRN PO 03/29/18 11:00 (Xanax) 0.25 mg Q8H PRN PO 03/29/18 11:00 03/29/18 20:20 (Eliquis) 5 mg Q12H PO 03/29/18 11:00 04/01/18 21:37 (Aspirin Chew) 81 mg DAILY CHEW 03/30/18 09:00 04/01/18 09:55 (Vitamin D3) 2,000 units DAILY PO 03/29/18 11:00 04/01/18 09:55 (Microzide) 12.5 mg DAILY PO 03/29/18 11:00 04/01/18 09:55 (Synthroid) 125 mcg DAILY@0600 PO 03/29/18 11:00 04/02/18 06:37 (Pravachol) 20 mg HS PO 03/29/18 21:00 04/01/18 21:27 (Lyrica) 100 mg BID PO 03/29/18 11:00 04/01/18 21:27 (D50w (Vial) Inj) 50 ml UNSCH PRN IV PUSH 03/29/18 11:00 (Glucagon Inj) 1 mg UNSCH PRN OTHER 03/29/18 11:00 (NovoLOG SUPPLEMENTAL SCALE) 1 ACHS SLIDING SCALE SQ 03/29/18 12:00 04/01/18 21:00 (Levemir Inj) 10 units Q12HR SQ 03/29/18 21:00 04/01/18 21:28 (Tylenol) 650 mg Q6H PRN PO 03/29/18 11:15 (Percocet 5-325 Mg) 1 tab Q6H PRN PO 03/29/18 11:15 (Percocet 10-325 Mg) 1 tab Q6H PRN PO 03/29/18 11:15 04/01/18 17:00 (Dilaudid Pf Inj) 0.5 mg Q3H PRN IV PUSH 03/29/18 11:15 03/31/18 20:41 (Narcan Inj) 0.4 mg UNSCH PRN IV PUSH 03/29/18 11:15 (Zofran Odt) 4 mg Q6H PRN PO 03/29/18 11:15 04/01/18 10:13 (Duoneb Neb) 1 ampule Q4HR WHILE AWAKE NEB NEB 03/30/18 12:00 04/01/18 19:25 (Vaseline Oint) 1 applic BID TOPICAL 03/30/18 10:30 04/01/18 21:28 (Toprol Xl) 100 mg BID PO 03/30/18 21:00 04/01/18 21:27 (Lasix) 40 mg DAILY PO 03/31/18 09:00 04/01/18 09:55 (OxyCONTIN CR) 10 mg Q8H PO 03/31/18 11:00 04/01/18 18:49 (Cardizem) 90 mg TID PO 04/01/18 09:00 04/01/18 17:00 (Imdur) 60 mg DAILY PO 04/01/18 09:00 04/01/18 09:54 (Reglan Inj) 5 mg Q6H PRN IV PUSH 04/01/18 19:45 04/01/18 21:27 Vital Signs / I&O Vital Signs Date Time Temp Pulse Resp B/P (MAP) Pulse Ox O2 Delivery O2 Flow Rate FiO2 04/02/18 08:05 97.2 83 18 127/60 (82) 100 04/02/18 04:00 72 04/02/18 04:00 97.2 75 18 124/64 (84) 100 04/02/18 00:00 98.0 75 18 125/70 (88) 100 04/02/18 00:00 70 04/01/18 22:27 16 04/01/18 20:00 97.9 70 19 131/68 (89) 95 04/01/18 20:00 Nasal Cannula 2.00 04/01/18 20:00 63 04/01/18 19:39 18 04/01/18 16:08 97.3 69 18 114/55 (74) 95 04/01/18 16:00 Room Air 04/01/18 15:56 57 04/01/18 15:21 97 Nasal Cannula 2.00 04/01/18 12:08 97.6 93 18 105/55 (72) 95 04/01/18 12:01 98 Nasal Cannula 3.00 04/01/18 12:00 96 04/01/18 12:00 Room Air I/O 04/01/18 04/01/18 04/01/18 04/02/18 04/02/18 04/02/18 07:00 15:00 23:00 07:00 15:00 23:00 Intake Total 300 ml 600 ml 480 ml Output Total 500 ml 800 ml Balance -200 ml -200 ml 480 ml Intake Oral 300 ml 600 ml 480 ml Output Urine Total 500 ml 800 ml # Voids 1 2 # Bowel Movements 1 Physical Exam GENERAL: Well developed, well nourished. No acute distress. HEENT: Jugular venous pressure is normal. CHEST: Lungs clear to auscultation. CARDIAC: Irregular rate and rhythm without S3, S4, or murmur. ABDOMEN: Soft, nontender, no hepatosplenomegaly. Bowel sounds present. EXTREMITIES: No clubbing, cyanosis. Trace pretibial edema. Laboratory Laboratory Tests Test 04/02/18 06:34 White Blood Count 9.8 TH/MM3 Red Blood Count 4.06 MIL/MM3 Hemoglobin 12.2 GM/DL Hematocrit 37.4 % Mean Corpuscular Volume 92.1 FL Mean Corpuscular Hemoglobin 30.1 PG Mean Corpuscular Hemoglobin Concent 32.6 % Red Cell Distribution Width 14.6 % Platelet Count 249 TH/MM3 Mean Platelet Volume 10.0 FL Neutrophils (%) (Auto) 75.5 % Lymphocytes (%) (Auto) 13.3 % Monocytes (%) (Auto) 8.5 % Eosinophils (%) (Auto) 2.4 % Basophils (%) (Auto) 0.3 % Neutrophils # (Auto) 7.4 TH/MM3 Lymphocytes # (Auto) 1.3 TH/MM3 Monocytes # (Auto) 0.8 TH/MM3 Eosinophils # (Auto) 0.2 TH/MM3 Basophils # (Auto) 0.0 TH/MM3 CBC Comment DIFF FINAL Differential Comment Blood Urea Nitrogen 25 MG/DL Creatinine 1.23 MG/DL Random Glucose 194 MG/DL Total Protein 6.8 GM/DL Albumin 3.0 GM/DL Calcium Level 9.4 MG/DL Alkaline Phosphatase 85 U/L Aspartate Amino Transf (AST/SGOT) 16 U/L Alanine Aminotransferase (ALT/SGPT) 21 U/L Total Bilirubin 0.5 MG/DL Sodium Level 136 MEQ/L Potassium Level 4.1 MEQ/L Chloride Level 94 MEQ/L Carbon Dioxide Level 34.3 MEQ/L Anion Gap 8 MEQ/L Estimat Glomerular Filtration Rate 42 ML/MIN Assessment and Plan Problem List: (1) Congestive heart failure (CHF) ICD Codes: I50.9 - Heart failure, unspecified Status: Acute Plan: Doing well. Echo apparently shows overall normal left ventricular function, reports pending. CHF possibly precipitated by atrial fib. REC OK to discharge patient on current regimen, f/u with Dr. Armen Horenstein (2) Paroxysmal atrial fibrillation ICD Codes: I48.0 - Paroxysmal atrial fibrillation Status: Acute Plan: Remains in atrial fib. HR's now under good control. REC continue apixaban continue metoprolol/diltiazem (3) CAD (coronary artery disease) ICD Codes: I25.10 - Atherosclerotic heart disease of [place] coronary artery without angina pectoris Status: Chronic Plan: Stable overall. No ischemia seen on nuclear stress test imaging. Recommend continue medical therapy, including added oral nitrate. (4) Hypertension ICD Codes: I10 - Essential (primary) hypertension Status: Chronic Plan: Stable. Normotensive. Code Status full code Discussed Condition With patient Problem Qualifiers (1) Congestive heart failure (CHF): Qualified Codes: I50.9 - Heart failure, unspecified (2) CAD (coronary artery disease): Qualified Codes: I25.119 - Atherosclerotic heart disease of [place] coronary artery with unspecified angina pectoris (3) Hypertension: Qualified Codes: I10 - Essential (primary) hypertension Praful Baum MD April 02, 2018 08:39
[2018-04-02] MEDS: PREGABALIN 100 MG CAP PO SCH (08:47)
[2018-04-02] MEDS: CHOLECALCIFEROL (VIT D3) 1000 UNIT TAB PO SCH (08:47)
[2018-04-02] MEDS: ASPIRIN 81 MG CHEW TAB CHEW SCH (08:47)
[2018-04-02] MEDS: METOPROLOL SUCCINATE 50 MG EXTENDED RELEASE TAB PO SCH (08:47)
[2018-04-02] MEDS: POTASSIUM CHLORIDE 20 MEQ CONTROLLED RELEASE TAB PO SCH (08:48)
[2018-04-02] MEDS: FUROSEMIDE 40 MG TAB PO SCH (08:48)
[2018-04-02] MEDS: DILTIAZEM HCL 90 MG TAB PO SCH ×3 (08:48→18:16)
[2018-04-02] MEDS: ISOSORBIDE MONONITRATE 60 MG CR TAB (IMDUR) PO SCH (08:48)
[2018-04-02] MEDS: HYDROCHLOROTHIAZIDE 12.5 MG CAP PO SCH (08:48)
[2018-04-02] MEDS: INSULIN DETEMIR 100 UNITS/ML VIAL SQ SCH (08:49)
[2018-04-02] MEDS: SODIUM CHLORIDE 0.9% FLUSH 10 ML FLUSH IV FLUSH SCH (08:49)
[2018-04-02] MEDS: INSULIN ASPART SUPPLEMENTAL SCALE SQ SCH ×3 (08:50→18:17)
[2018-04-02] MEDS: PETROLATUM 30 GM TUBE TOPICAL SCH (08:50)
[2018-04-02] MEDS: RESP: ALBUTEROL 2.5 MG/IPRATROPIUM 0.5 MG NEB (SCH) NEB ×3 (08:55→15:35)
--- NOTE | 2018-04-02 11:08 | ECHRPT ---
Indication: SOB CONCLUSIONS Technically very difficult study making assessment of left ventricular function and wall motion very suboptimal. Grossly left ventricular function appears low normal. Regional wall motion abnormaliti es cannot be excluded. Left ventricular size and wall thickness appear grossly normal. The aortic valve is not well visualized. There is trace to mild tricuspid valve regurgitation. The estimated pulmonary arterial pressure is 35 mmHg. BP: 103 / 76 HR: Rhythm: MEASUREMENTS (Male / Female) Normal Values Technical Quality:Technically difficult study 2D ECHO LV Diastolic Diameter PLAX 5.2 cm 4.2 - 5.9 / 3.9 - 5.3 cm IVS Diastolic Thickness 1.4 cm 0.6 - 1.0 / 0.6 - 0.9 cm LVPW Diastolic Thickness 1.3 cm 0.6 - 1.0 / 0.6 - 0.9 cm LV Relative Wall Thickness 0.5 RV Internal Dim ED PLAX 2.4 cm M-MODE Aortic Root Diameter MM 3.1 cm LA Systolic Diameter MM 3.9 cm LA Ao Ratio MM 1.3 AV Cusp Separation MM 1.7 cm DOPPLER TR Peak Velocity 254.0 cm/s TR Peak Gradient 25.8 mmHg Right Atrial Pressure 10.0 mmHg Pulmonary Artery Systolic Pressu 35.8 mmHg Right Ventricular Systolic Press 35.8 mmHg FINDINGS LEFT VENTRICLE Technically very difficult study making assessment of left ventricular function and wall motion very suboptimal. Grossly left ventricular function appears low normal. Regional wall motion abnormaliti es cannot be excluded. Left ventricular size and wall thickness appear grossly normal. RIGHT VENTRICLE Normal right ventricular size and systolic function. LEFT ATRIUM The left atrial size is normal. RIGHT ATRIUM The right atrial size is normal. ATRIAL SEPTUM Normal atrial septal thickness without atrial level shunting by limited color doppler interrogation. AORTA The aortic root and proximal ascending aorta are normal in size on limited imaging. MITRAL VALVE Structurally normal mitral valve. No mitral valve stenosis or regurgitation. AORTIC VALVE The aortic valve is not well visualized. TRICUSPID VALVE There is trace to mild tricuspid valve regurgitation. The estimated pulmonary arterial pressure is 35 mmHg. PULMONARY VALVE No pulmonary valve regurgitation or stenosis. VESSELS The inferior vena cava is normal in size. PERICARDIUM No pericardial effusion. Praful Baum MD (Electronically Signed) Final Date:02 Apr 2018 11:07
--- NOTE | 2018-04-02 11:42 | HHI.FPPN ---
Subjective Remarks Patient seen and examined this morning directly following echocardiogram. Patient reports that her breathing is slightly worse than normal, however notes that it is significantly better than admission. She reports some mild nausea and vomiting last night, however that has resolved she is no longer nauseous at this time. Dry cough. Denies fever, chills, lightheadedness, dizziness, pain in arm or jaw. She states she is walking better and has been able to ambulate over to the bathroom by herself with a walker. No other complaints today. (Zohaib Ramirez MD R1) Objective Vitals Vital Signs Date Time Temp Pulse Resp B/P (MAP) Pulse Ox O2 Delivery O2 Flow Rate FiO2 04/02/18 08:57 99 Nasal Cannula 2.00 04/02/18 08:05 97.2 83 18 127/60 (82) 100 04/02/18 08:00 Nasal Cannula 2.00 04/02/18 07:30 82 04/02/18 04:00 72 04/02/18 04:00 97.2 75 18 124/64 (84) 100 04/02/18 00:00 98.0 75 18 125/70 (88) 100 04/02/18 00:00 70 04/01/18 22:27 16 04/01/18 20:00 97.9 70 19 131/68 (89) 95 04/01/18 20:00 Nasal Cannula 2.00 04/01/18 20:00 63 04/01/18 19:39 18 04/01/18 16:08 97.3 69 18 114/55 (74) 95 04/01/18 16:00 Room Air 04/01/18 15:56 57 04/01/18 15:21 97 Nasal Cannula 2.00 04/01/18 12:08 97.6 93 18 105/55 (72) 95 04/01/18 12:01 98 Nasal Cannula 3.00 04/01/18 12:00 96 04/01/18 12:00 Room Air I/O 04/01/18 04/01/18 04/01/18 04/02/18 04/02/18 04/02/18 07:00 15:00 23:00 07:00 15:00 23:00 Intake Total 300 ml 600 ml 480 ml Output Total 500 ml 800 ml Balance -200 ml -200 ml 480 ml Intake Oral 300 ml 600 ml 480 ml Output Urine Total 500 ml 800 ml # Voids 1 2 # Bowel Movements 1 (Zohaib Ramirez MD R1) Result Diagram: 04/02/18 0634 04/02/18 0634 Objective Remarks GENERAL: She is a well-developed, well-nourished obese white female in no acute distress. RESP: Clear lung rey bilaterally with no wheezing, rhonchi, rales. HEART: She has an irregularly irregular rhythm without definite S3 or murmur. ABDOMEN: On abdominal examination, she has a soft, obese, nontender abdomen. EXTREMITIES: Reveals no clubbing or cyanosis. 1+ pitting edema to mid [place] bilaterally. (Zohaib Ramirez MD R1) A/P Assessment and Plan Patient is a 77-year-old female with a history of CAD, carotid artery stenosis, congestive heart failure, CVA, depression, type II diabetes, hypercholesterolemia, hypertension, hypothyroid, obesity, ND, paroxysmal A. fib , peripheral vascular disease who presents with progressively worsening dyspnea , found to have pulmonary edema consistent with acute on chronic CHF exacerbation and A. fib with RVR. Although initially managed with IV diuretics and rate control medication, patient denies clinical improvement. Thus, cardiology was consulted. Recommendations appreciated. Discharge Planning Cleared for discharge by cardiology, CM helping to arrange PT at rehab. (Zohaib Ramirez MD R1) Attending Attestation Patient seen and examined. Case reviewed and discussed with the resident team. Agree with plan of care as discussed with me and documented in the resident note. (Lisa Briseno MD) Problem List: (1) Pulmonary edema ICD Codes: J81.1 - Chronic pulmonary edema Status: Resolved Plan: pulmonary edema consistent with acute on chronic CHF exacerbation -Cardiology consulted. Recommendations appreciated -Echocardiogram final read is pending -Continue home medication of metoprolol succinate ER 50 mg p.o. twice daily -Lasix 40 mg p.o. daily -Lexiscan nuclear stress test done and resulted this morning -Diabetic diet with 2L fluid and 2g sodium restrictions -Daily weight -Monitor vital signs -Monitor I's and O's -incentive spirometer -Monitor BMP daily and replete potassium as needed -hospital monitor/telemetry -Oxygen as needed -Physical therapy consult recommended PT at rehab -Case management consult has arranged for PT at rehab (2) Chest pain ICD Codes: R07.9 - Chest pain, unspecified Status: Acute Plan: Patient reports exertional chest pain. ACS ruled out with q. 6 hour EKG and troponin. Aortogram negative for aneurysm or dissection. -Aspirin 81 mg p.o. qd -Continue home medications of statin, beta-william -Patient with allergy to morphine requested Dilaudid. Ordered Tylenol, Percocet , hydromorphone for breakthrough pain. Continued home medication of OxyContin -Cardiology consult. Recommendations appreciated below: * Lexiscan nuclear stress test done, per cardiology no ischemia seen on nuclear stress test imaging * For CHF-possibly precipitated by atrial fib, okay to discharge on current regimen, follow up with Dr. Pena * For A. fib-continue apixaban, continue metoprolol and diltiazem (3) Atrial fibrillation with rapid ventricular response ICD Codes: I48.91 - Unspecified atrial fibrillation Status: Acute Plan: Patient with history of paroxysmal A. fib. -Home metoprolol increased to 100 mg twice daily per cardiology -Continue anticoagulation therapy for her atrial fibrillation: Continue home medication of Eliquis 5 mg p.o. every 12 hours -Diltiazem 60 mg p.o. 3 times daily increased to 90 mg p.o. 3 times daily, per cardiology -Cardiology consulted. Recommendations appreciated -Consider an atrial fibrillation ablation procedure in the future. (4) Chronic back pain ICD Codes: M54.9 - Dorsalgia, unspecified; G89.29 - Other chronic pain Status: Chronic Plan: -Continued patient's home medication of OxyContin Contin 10 mg p.o. every 8 hours -Continue other as needed pain medications as above -Ordered soft mattress (5) Diabetes ICD Codes: E11.9 - Diabetes Status: Chronic Plan: Patient takes 40 units twice daily before meals of insulin lispro protamine-lispro 50-50. She also takes exenatide 2 mg subcu q. 7 days -Cut home insulin dose in half for long-acting insulin dose of Levemir 10 units subcu every 12 hours -Low sliding scale insulin -Hypoglycemia protocol ordered (6) Hypertension ICD Codes: I10 - Essential (primary) hypertension Status: Chronic Plan: -Home metoprolol increased to 100 mg twice daily per cardiology -Continue home medication of hydrochlorothiazide 12.5 mg p.o. daily -Diltiazem increased from 60 mg to 90 mg p.o. 3 times daily (7) Hypercholesteremia ICD Codes: E78.00 - Pure hypercholesterolemia, unspecified Status: Chronic Plan: -Continue home medication of pravastatin 20 g p.o. nightly (8) Neuropathy ICD Codes: G62.9 - Polyneuropathy, unspecified Plan: -Continue patient's home medication of Lyrica 100 mg p.o. twice daily (9) Hypothyroidism ICD Codes: E03.9 - Hypothyroidism, unspecified Plan: -Continue patient's home medication of levothyroxine 125 mcg p.o. daily (10) Vitamin D deficiency ICD Codes: E55.9 - Vitamin D deficiency, unspecified Plan: -Continue patient's home medication of cholecalciferol 2000 units p.o. daily (11) No contraindication to deep vein thrombosis (DVT) prophylaxis ICD Codes: Z78.9 - Other specified health status Plan: -Patient already on Eliquis -Continue home medication of Eliquis 5 mg p.o. every 12 hours (12) Nutrition, metabolism, and development symptoms ICD Codes: R63.8 - Other symptoms and signs concerning food and fluid intake Plan: Fluids: Held for CHF exacerbation, volume overload, tolerated PO Electrolytes: Monitor and replete Nutrition: Diabetic diet with 2 L fluid restriction, 2 g sodium restriction GI prophylaxis: Not currently indicated (Zohaib Ramirez MD R1) Problem Qualifiers (1) Pulmonary edema: Qualified Codes: J81.0 - Acute pulmonary edema (2) Hypertension: Qualified Codes: I10 - Essential (primary) hypertension Zohaib Ramirez MD R1 April 02, 2018 11:42 Lisa Briseon MD April 02, 2018 14:23
[2018-04-02] MEDS: APIXABAN 5 MG TABLET PO SCH (12:46)
[2018-04-02] MEDS: METOCLOPRAMIDE HCL 10 MG/2 ML VIAL IV PUSH PRN (12:46)
[2018-04-02] MEDS ORDERED: DILT90TA PO (14:03)
[2018-04-02] MEDS ORDERED: FURO40TA PO (14:04)
--- NOTE | 2018-04-02 14:06 | HHI.DCPOC ---
Discharge Care Plan Diagnosis: (1) Atrial fibrillation (2) Atrial fibrillation with rapid ventricular response (3) Congestive heart failure (CHF) (4) Paroxysmal atrial fibrillation (5) Pulmonary edema (6) Chest pain (7) CAD (coronary artery disease) Goals to Promote Your Health * To prevent worsening of your condition and complications, please take your medications as prescribed and follow up with your tax professional. * To maintain your health at the optimal level, please participate in physical therapy. Directions to Meet Your Goals Take your medications as prescribed Follow your dietary instruction Follow activity as directed Keep your appointments as scheduled Take your immunizations and boosters as scheduled If your symptoms worsen call your PCP, if no PCP go to Urgent Care Center or Emergency Room Smoking is Dangerous to Your Health. Avoid second hand smoke Call the 24-hour hour crisis hotline for domestic abuse at Zohaib Barrett MD R2 April 02, 2018 14:06
[2018-04-02] MEDS ORDERED: LYRI100C PO (16:32)
[2018-04-02] MEDS ORDERED: OXYC-103 PO ×2 (16:32→16:49)
[2018-04-02] MEDS ORDERED: OXYC-395 PO (16:49)
[2018-04-02] MEDS ORDERED: TYLE325T PO (16:50)
== END 2018-04-02 19:09 | DRG 309 ==
LOC: NEPE 07:47 → NEDA 09:46 → NEDH 14:11 → HCIS 15:22 → N04A 03-30 20:55
PROVIDERS: ADMIT Family Medicine; ATTEND Family Medicine
DX: I48.0 Paroxysmal atrial fibrillation (principal); I69.351 Hemiplegia and hemiparesis following cerebral infarction affecting right dominant side; I11.0 Hypertensive heart disease with heart failure; I50.9 Heart failure, unspecified; E11.51 Type 2 diabetes mellitus with diabetic peripheral angiopathy without gangrene; E11.40 Type 2 diabetes mellitus with diabetic neuropathy, unspecified; E78.5 Hyperlipidemia, unspecified; I25.2 Old myocardial infarction; M19.90 Unspecified osteoarthritis, unspecified site; I25.119 Atherosclerotic heart disease of native coronary artery with unspecified angina pectoris; Z95.5 Presence of coronary angioplasty implant and graft; K21.9 Gastro-esophageal reflux disease without esophagitis; Z85.42 Personal history of malignant neoplasm of other parts of uterus; E03.9 Hypothyroidism, unspecified; Z87.891 Personal history of nicotine dependence; Z83.3 Family history of diabetes mellitus; Z82.49 Family history of ischemic heart disease and other diseases of the circulatory system; Z88.5 Allergy status to narcotic agent; Z82.3 Family history of stroke; Z90.710 Acquired absence of both cervix and uterus; K42.9 Umbilical hernia without obstruction or gangrene; F32.9 Major depressive disorder, single episode, unspecified; E66.9 Obesity, unspecified; I65.29 Occlusion and stenosis of unspecified carotid artery; Z79.4 Long term (current) use of insulin; Z79.82 Long term (current) use of aspirin; Z79.01 Long term (current) use of anticoagulants; Z79.899 Other long term (current) drug therapy; G89.29 Other chronic pain; M54.5 Low back pain; I34.0 Nonrheumatic mitral (valve) insufficiency; Z95.820 Peripheral vascular angioplasty status with implants and grafts; E55.9 Vitamin D deficiency, unspecified
CPT/HCPCS: 71046; 71275; 74174; 76937; 78452; 80048; 80053; 81001; 82550; 82948; 83880; 84443; 84484; 85025; 85027; 93005; 93017; 93306; 94150; 94640; 94664; 96372; 96374; 96375; A9502; J1170; J1200; J1815; J1940; J2360; J2765; J2785; Q9967

== ENCOUNTER 2018-05-07 13:01 | Emergency (ER) | payer MEDICARE, OTHER ==
[~2018-05-07] VITALS: Ht 162.6 cm; Wt 118.0 kg
[~2018-05-07 13:01] MED LIST changes: +CIPR-9 PO; +CULT10CA4 PO; +DILT90TA PO; +DULC10SU3 RECTAL; +FLEE10EN RECTAL; +FLUC100T2 PO; +FURO40TA PO; +LAMI1AER TOPICAL; +MILKSUS PO; +OXYC-103 PO; +OXYC-395 PO; +TYLE325T PO
[2018-05-07 13:06] VITALS: PULSE 117; RESP 22; TEMP 97.4; O2SAT 96
[2018-05-07] MEDS ORDERED: SODIUM CHLOR 0.9% 1000 ML INJ 1,000 ML IV ONE ×2 (13:15→13:45)
[2018-05-07 13:33] VITALS: BP 126/40; PULSE 126
--- NOTE | 2018-05-07 13:48 | PD ---
HPI . Low blood pressure Chief Complaint: Abnormal Results Time Seen by Provider: 13:13 Travel History International Travel<30 days: No Contact w/Intl Traveler<30days: No Traveled to known affect area: No History of Present Illness HPI This patient is a horrible historian. She presents to us from her doctor's office with the chief complaint of low blood pressure. She was reportedly just discharged from a long term facility where she had been for rehab. She reports that her blood pressure was low in the halfway. Her blood pressure medications were held. She is not currently taking blood pressure medications per her report. She does have a blood pressure medicines on her MAR from the halfway. Nonetheless, she has been feeling weak and dizzy for the last several days. She went to her doctor's office today and was found to be hypotensive with a systolic in the upper 90s-100 range. She was sent to us for further evaluation and treatment. She denies any vomiting or diarrhea. She denies any known blood loss. 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) Diabetes: Yes (TYPE 2 DIABETES) Patient Takes Glucophage: No Diminished Hearing: No Endocrine: Yes Gastrointestinal Disorders: Yes (UMBILICAL HERNIA) GERD: Yes Glaucoma: No Genitourinary: No Headaches: Yes Hepatitis: No Hiatal Hernia: No Heparin Induced Thrombocytopen: No Hypertension: Yes Immune Disorder: No Implanted Vascular Access Dvce: Yes (implanted tens unit) Kidney Stones: No Medical other: No Musculoskeletal: Yes Neurologic: Yes (CVA-2 OR 3) Psychiatric: No Reproductive: No Respiratory: No Migraines: No Myocardial Infarction: Yes () Radiation Therapy: No Renal Failure: No Seizures: No Sickle Cell Disease: No Sleep Apnea: No Thyroid Disease: Yes (HYPO) Ulcer: No PNEUMOCCOCAL Vaccine (Year): 2 Menopausal: Yes : 4 Para: 4 Miscarriage: 0 : 0 Past Surgical History Abdominal Surgery: Yes (CHOLECYSTECTOMY) AICD: No Appendectomy: Yes Arteriovenous Shunt: No Body Medical Devices: LUMBAR HARDWARE, CARDIAC STENTS, CLUNEAL NERVE STIMULATOR Cardiac Surgery: Yes (3 CARDIAC STENTS;) Section: Yes Cholecystectomy: Yes Ear Surgery: No Endocrine Surgery: No Eye Surgery: Yes (BILAT CATARACT SURGERY) Genitourinary Surgery: No Gynecologic Surgery: Yes (HYSTERECTOMY; CSECTION) Hysterectomy: Yes Insulin Pump: No Joint Replacement: No Neurologic Surgery: Yes (CAROTID ENDARTARECTOMY) Oral Surgery: Yes (T & A) Pacemaker: No Thoracic Surgery: No Tonsillectomy: Yes Other Surgery: Yes (SARAH, APPENDECTOMY, TONSILLECTOMY, R CARATID ARTERY SX) Social History Alcohol Use: Yes (OCC) Tobacco Use: No (former) Substance Use: No Allergies-Medications (Allergen,Severity, Reaction): Coded Allergies: codeine (Unverified Allergy, Severe, Nausea/Vomiting, 05/07/18) promethazine (Unverified Allergy, Severe, Tachycardia, 05/07/18) morphine (Unverified Adverse Reaction, Severe, HALLUCINATIONS, 05/07/18) Reported Meds & Prescriptions Reported Meds & Active Scripts Active Oxycodone (Oxycodone HCl) 10 Mg Tab 10 Mg PO Q4H PRN Oxycontin (Oxycodone HCl) 10 Mg Tab 10 Mg PO Q8HR Lyrica (Pregabalin) 100 Mg Cap 100 Mg PO BID Furosemide 40 Mg Tab 40 Mg PO DAILY Diltiazem (Diltiazem HCl) 90 Mg Tab 90 Mg PO TID Reported Lamisil AF Defense Topical (Tolnaftate) 1 % Aer 1 Applic TOPICAL BID Fleet Bisacodyl Enema (Bisacodyl) 10 Mg/37 Ml Enem 37 Ml RECTAL DAILY PRN Milk of Magnesia Liq (Magnesium Hydroxide) 400 Mg/5 Ml Susp 30 Ml PO DAILY PRN Dulcolax Supp (Bisacodyl) 10 Mg Supp 10 Mg RECTAL DAILY PRN Bydureon Inj (Exenatide) 2 Mg Vial 2 Mg SQ Q7D Vitamin D3 (Cholecalciferol) 2,000 Unit Cap 2,000 Units PO DAILY Pravastatin 20 Mg Tab 20 Mg PO HS Aspirin 81 Mg Chew 81 Mg CHEW DAILY Eliquis (Apixaban) 5 Mg Tab 5 Mg PO BID Hydrochlorothiazide 12.5 Mg Tab 12.5 Mg PO DAILY Metoprolol Succinate ER 24 HR (Metoprolol Succinate) 100 Mg Tab 50 Mg PO BID Synthroid (Levothyroxine Sodium) 125 Mcg Tab 125 Mcg PO DAILY Humalog Mix 50-50 Inj (Insulin Lispro Protamine-Lispro 50-50 Inj) 1,000 Unit/10 Ml Vial 40 Units SQ BIDAC Review of Systems Except as stated in HPI: all other systems reviewed are Neg Physical Exam Narrative GENERAL: Awake and alert. SKIN: warm/dry. HEAD: Normocephalic. Atraumatic. EYES: Pupils equal and round. Extraocular movements are intact. ENT: Mucous membranes pink and moist. NECK: Supple. Full range of motion without pain.. CARDIOVASCULAR: Tachycardic at about 130. It is probably in atrial fibrillation rhythm. RESPIRATORY: No accessory muscle use. GASTROINTESTINAL: Abdomen soft. Nontender. Bowel sounds present. Nondistended. MUSCULOSKELETAL: No obvious deformities. Normal muscle tone. NEUROLOGICAL: Awake and alert. No obvious cranial nerve deficits. Motor grossly within normal limits. Normal speech. PSYCHIATRIC: Appropriate mood and affect; insight and judgment normal. Data Data Last Documented VS Vital Signs Date Time Temp Pulse Resp B/P (MAP) Pulse Ox O2 Delivery O2 Flow Rate FiO2 05/07/18 13:33 126 126/40 (68) 05/07/18 13:06 97.4 22 96 Orders Orders Sodium Chlor 0.9% 1000 Ml Inj (Ns 1000 M (05/07/18 13:15) Sepsis Workup Initiated (05/07/18 ) Complete Blood Count With Diff (05/07/18 13:39) Comprehensive Metabolic Panel (05/07/18 13:39) Lactic Acid Sepsis Protocol (05/07/18 13:39) Urinalysis - C+S If Indicated (05/07/18 13:39) Blood Culture (05/07/18 13:39) Chest, Single Ap (05/07/18 13:39) Ecg Monitoring (05/07/18 13:39) Iv Access Insert/Monitor (05/07/18 13:39) Cath For Specimen (05/07/18 13:39) Oximetry (05/07/18 13:39) Sodium Chlor 0.9% 1000 Ml Inj (Ns 1000 M (05/07/18 13:45) Oxycodone-Acetamin 10-325 Mg (Percocet 1 (05/07/18 14:45) Oxycodone (Roxicodone) (05/07/18 15:00) Labs Laboratory Tests Test 05/07/18 13:46 05/07/18 14:07 White Blood Count 15.8 TH/MM3 Red Blood Count 5.00 MIL/MM3 Hemoglobin 14.8 GM/DL Hematocrit 45.2 % Mean Corpuscular Volume 90.2 FL Mean Corpuscular Hemoglobin 29.5 PG Mean Corpuscular Hemoglobin Concent 32.7 % Red Cell Distribution Width 14.4 % Platelet Count 281 TH/MM3 Mean Platelet Volume 9.7 FL Neutrophils (%) (Auto) 77.9 % Lymphocytes (%) (Auto) 14.4 % Monocytes (%) (Auto) 6.6 % Eosinophils (%) (Auto) 0.8 % Basophils (%) (Auto) 0.3 % Neutrophils # (Auto) 12.3 TH/MM3 Lymphocytes # (Auto) 2.3 TH/MM3 Monocytes # (Auto) 1.0 TH/MM3 Eosinophils # (Auto) 0.1 TH/MM3 Basophils # (Auto) 0.0 TH/MM3 CBC Comment DIFF FINAL Differential Comment Blood Urea Nitrogen 27 MG/DL Creatinine 1.36 MG/DL Random Glucose 191 MG/DL Total Protein 7.3 GM/DL Albumin 3.2 GM/DL Calcium Level 9.2 MG/DL Alkaline Phosphatase 80 U/L Aspartate Amino Transf (AST/SGOT) 18 U/L Alanine Aminotransferase (ALT/SGPT) 25 U/L Total Bilirubin 0.6 MG/DL Sodium Level 137 MEQ/L Potassium Level 3.2 MEQ/L Chloride Level 95 MEQ/L Carbon Dioxide Level 30.6 MEQ/L Anion Gap 11 MEQ/L Estimat Glomerular Filtration Rate 38 ML/MIN Lactic Acid Level 2.0 mmol/L Urine Color Straw Urine Turbidity CLEAR Urine pH 7.0 Urine Specific [place] 1.006 Urine Protein NEG mg/dL Urine Glucose (UA) NEG mg/dL Urine Ketones NEG mg/dL Urine Occult Blood NEG Urine Nitrite NEG Urine Bilirubin NEG Urine Urobilinogen LESS THAN 2 mg/dL Urine Leukocyte Esterase TRACE Urine RBC LESS THAN 1 /hpf Urine WBC 1 /hpf Urine Squamous Epithelial Cells 2 /hpf Urine Hyaline Casts 13 /lpf Urine Mucus FEW /lpf Microscopic Urinalysis Comment CATH-CULT NOT IND MDM Medical Decision Making Medical Screen Exam Complete: Yes Emergency Medical Condition: Yes Differential Diagnosis Differential diagnosis of weakness includes but is not limited to infection, CVA , electrolyte disturbance, renal failure, hypoglycemia Narrative Course This patient presents complaining of feeling weak and dizzy. Her blood pressure was reportedly low at her doctor's office. We have had a difficult time obtaining her blood pressure here. Forearm blood pressures were found to be around 130 systolic. I have ordered a septic workup. I will give her a fluid bolus. I am only giving give her 500 cc because she has a history of pulmonary edema. Last Impressions Chest X-Ray 05/07/18 1339 Signed Impressions: CONCLUSION: No acute cardiopulmonary findings identified. CBC & BMP Diagram 05/07/18 13:46 Total Protein 7.3, Albumin 3.2 L, Calcium Level 9.2, Alkaline Phosphatase 80, Aspartate Amino Transf (AST/SGOT) 18, Alanine Aminotransferase (ALT/SGPT) 25, Total Bilirubin 0.6 LA 2.0 UA is negative for infection. Her blood pressure has remained stable in the emergency department. The history, exam, diagnostic testing, and current condition do not suggest any significant pathology to warrant further testing, continued ED treatment, admission, or surgical evaluation at this point. No EMC was found. The patient 's condition is stable and appropriate for discharge. Diagnosis Primary Impression: History of hypotension Patient Instructions: General Instructions, Hypotension (DC) Additional Instructions: Hold the metoprolol, diltiazem and hydrochlorothiazide until further instructed by her doctor. Disposition: 01 DISCHARGE HOME Condition: Stable Hermelinda Vogt MD May 07, 2018 13:48
--- NOTE | 2018-05-07 14:16 | RADRPT ---
EXAM DATE: 05/07/2018 2:05 PM EDT AGE/SEX: 78 years / Female INDICATIONS: Short of breath CLINICAL DATA: This is the patient's initial encounter. Patient reports that signs and symptoms have been present for 1 day and indicates a pain score of 0/10. MEDICAL/SURGICAL HISTORY: Congestive heart failure. A-fib None. COMPARISON: [facility] [place], CHEST SINGLE AP, 07/14/2012. . FINDINGS: A single AP view of the chest demonstrates the lungs to be symmetrically aerated without evidence of mass, infiltrate or effusion. The cardiomediastinal contours are unremarkable. Osseous structures a re intact. CONCLUSION: No acute cardiopulmonary findings identified. Electronically signed by: Jaun Reece MD 05/07/2018 2:15 PM EDT
[2018-05-07 14:31] LABS: AUTOMATED NEUTROPHIL # 12.3 TH/MM3 (1.8-7.7); BASOPHIL % 0.3 % (0.0-2.0); EOSINOPHIL # 0.1 TH/MM3 (0-0.4); EOSINOPHIL % 0.8 % (0.0-4.0); HEMATOCRIT 45.2 % (35.0-46.0); HEMOGLOBIN 14.8 GM/DL (11.6-15.3); LYMPH % 14.4 % (9.0-44.0); LYMPHOCYTE # 2.3 TH/MM3 (1.0-4.8); MEAN CELL VOLUME 90.2 FL (80.0-100.0); MEAN CORPUSCULAR HEMOGLOBIN 29.5 PG (27.0-34.0); MEAN CORPUSCULAR HGB CONC 32.7 % (32.0-36.0); MEAN PLATELET VOLUME 9.7 FL (7.0-11.0); MONO % 6.6 % (0.0-8.0); NEUT % 77.9 % (16.0-70.0); PLATELET COUNT 281 TH/MM3 (150-450); RED CELL DISTRIBUTION WIDTH 14.4 % (11.6-17.2); WHITE BLOOD COUNT 15.8 TH/MM3 (4.0-11.0)
[2018-05-07 14:34] LABS: BILIRUBIN, URINE NEG (NEG); BLOOD, URINE NEG (NEG); GLUCOSE,URINE NEG (NEG); HYALINE CAST, URINE 13 /lpf (RARE); KETONE, URINE NEG (NEG); MUCUS URINE FEW /lpf (OCC); NITRITE,URINE NEG (NEG); SQUAMOUS EPITHELIAL CELL URINE 2 /hpf (0-5); URINE COLOR Straw (YELLW/STRAW); URINE LEUKOCYTE ESTERASE TRACE (NEG)
[2018-05-07] MEDS ORDERED: oxyCODONE/ACETAMINOPHEN 10 MG/325 MG TAB PO ONE (14:45)
[2018-05-07 14:50] LABS: ALBUMIN 3.2 GM/DL (3.4-5.0); ALT (GPT) 25 U/L (10-53); AST (GOT) 18 U/L (15-37); BICARBONATE 30.6 MEQ/L (21.0-32.0); BLOOD UREA NITROGEN 27 MG/DL (7-18); CALCIUM 9.2 MG/DL (8.5-10.1); CHLORIDE 95 MEQ/L (98-107); CREATININE 1.36 MG/DL (0.50-1.00); GLOMERULAR FILTRATION RATE 38 ML/MIN (>89); GLUCOSE,RANDOM 191 MG/DL (74-106); SODIUM (NA) 137 MEQ/L (136-145)
[2018-05-07 14:53] LABS: ALKALINE PHOSPHATASE 80 U/L (45-117); TOTAL BILIRUBIN ADULT 0.6 MG/DL (0.2-1.0); TOTAL PROTEIN 7.3 GM/DL (6.4-8.2)
[2018-05-07 15:41] VITALS: BP 121/57
[2018-05-07 15:48] VITALS: RESP 18; O2SAT 100
[2018-05-11] MEDS ORDERED: CLOTR1%T TOPICAL (19:23)
[2018-05-13] MEDS ORDERED: OXYC-395 PO (08:50)
== END 2018-05-07 16:14 | disposition home or self-care (01) ==
LOC: NEPE 13:01
DX: I95.9 Hypotension, unspecified (principal); R53.1 Weakness; R42 Dizziness and giddiness; R00.0 Tachycardia, unspecified; M19.90 Unspecified osteoarthritis, unspecified site; E78.00 Pure hypercholesterolemia, unspecified; I11.0 Hypertensive heart disease with heart failure; I50.9 Heart failure, unspecified; I69.951 Hemiplegia and hemiparesis following unspecified cerebrovascular disease affecting right dominant side; E11.9 Type 2 diabetes mellitus without complications; K21.9 Gastro-esophageal reflux disease without esophagitis; E03.9 Hypothyroidism, unspecified; Z79.4 Long term (current) use of insulin; Z79.82 Long term (current) use of aspirin; Z79.899 Other long term (current) drug therapy; Z88.5 Allergy status to narcotic agent; Z88.8 Allergy status to other drugs, medicaments and biological substances; Z87.891 Personal history of nicotine dependence
CPT/HCPCS: 71045; 80053; 81001; 83605; 85025; 87040; 96360; 96361; 99284; J7030

== ENCOUNTER 2018-05-11 16:09 | Inpatient (IN) ==
[2018-05-16] MEDS ORDERED: Insulin NovoLOG Aspart Correctional Sugar Inj SQ ONE (22:32)
[2018-05-17] MEDS ORDERED: Dextrose 50% in Water 50 ML Vial IV.PUSH PRN
[2018-05-17] MEDS ORDERED: Mag Sulf 1 gm/100 ml Premix 100 ML IV.SIG PRN
[2018-05-17] MEDS ORDERED: Metoprolol Inj 5 MG/5 ML Vial IV.PUSH PRN
[2018-05-17] MEDS ORDERED: Esmolol 2,500 mg/250 mL Premix 2,500 MG/250 ML BAG IV.CONT PRN ×2 (00:01)
[2018-05-17] MEDS ORDERED: Levothyroxine 125 MCG Tablet PO SCH (06:00)
[2018-05-17] MEDS: Insulin NovoLOG Aspart Correctional Sugar Inj SQ SCH ×3 (08:33→17:00)
[2018-05-17] MEDS ORDERED: Digoxin 125 MCG Tablet PO SCH (09:00)
[2018-05-17] MEDS ORDERED: oxyCODONE 10 MG Controlled Release Tablet PO SCH (09:00)
[2018-05-17] MEDS ORDERED: dilTIAZem CD 180 MG Capsule PO SCH (09:00)
--- NOTE | 2018-05-17 12:57 | P.DS ---
DS: Providers Date of admission: 05/11/18 19:00 Primary care physician: UNKNOWN DS: Medications - Discharge Medications Prescriptions: oxycodone 10 mg PO Q6HR PRN #7 tab PRN Reason: Pain oxycodone [OxyContin] 10 mg PO Q12H #7 tab DS: Summary Hospital Course: Mrs. Tripp is a 78-year-old female. She was admitted secondary to A. fib with RVR, hypotension, and syncope. This has been controlled on diltiazem. Patient has stability now in regards to her A. fib RVR. She remains profoundly weak. She is having difficulty even sitting up in bed. She will need prolonged physical therapy in an inpatient setting. Discharge to retirement facility is recommended and patient is medically clear for discharged to retirement facility today to continue her physical therapy. - Time Spent with Patient Total time spent providing and/or coordinating discharge services: Exam Vital signs: Vital Signs 05/16/18 19:42 05/16/18 23:44 05/17/18 00:00 Temperature 97.9 F Pulse Rate 99 H 105 H 94 H Respiratory Rate 16 Blood Pressure 134/87 Pulse Oximetry 96 05/17/18 03:41 05/17/18 04:00 05/17/18 08:00 Temperature 97.8 F 97.3 F L Pulse Rate 79 100 H 95 H Respiratory Rate 18 18 Blood Pressure 128/79 170/76 H Pulse Oximetry 95 94 L Intake & Output 05/16/18 05/17/18 05/17/18 18:59 06:59 18:59 Output Total 1999 Balance -1999 Weight 121.4 kg 120.8 kg Output: Urine 1999 Other: # Bowel Movements 0 Results Labs on day of discharge: Labs from last 24 hours 05/17/18 05/16/18 05/16/18 10:04 05:44 05:44 WBC 8.0 RBC 4.15 Hgb 12.5 Hct 38.6 MCV 92.9 MCH 30.1 MCHC 32.4 RDW 14.7 Plt Count 198 MPV 10.0 Neut % (Auto) 70.9 H Lymph % (Auto) 17.5 Frio % (Auto) 8.2 H Eos % (Auto) 3.0 Baso % (Auto) 0.4 Neut # (Auto) 5.7 Lymph # (Auto) 1.4 Frio # (Auto) 0.7 Eos # (Auto) 0.2 Baso # (Auto) 0.0 CBC Comment DIFF FINAL Sodium 138 Potassium 4.9 Chloride 104 Carbon Dioxide 25.2 Anion Gap 9 BUN 14 Creatinine 0.84 Estimated GFR 66 L POC Glucose 241 H Random Glucose 150 H Calcium 9.3 Magnesium Total Bilirubin 0.4 AST 13 L ALT 14 Alkaline Phosphatase 64 Total Creatine Kinase Troponin I Total Protein 6.4 D Albumin 2.5 L Lipase Nasal Screen MRSA (PCR) 05/15/18 05/15/18 05/14/18 07:38 07:38 03:23 WBC 10.3 RBC 4.36 Hgb 13.1 Hct 40.3 MCV 92.3 MCH 30.0 MCHC 32.5 RDW 14.5 Plt Count 214 MPV 10.0 Neut % (Auto) 63.4 Lymph % (Auto) 24.2 Frio % (Auto) 9.0 H Eos % (Auto) 2.7 Baso % (Auto) 0.7 Neut # (Auto) 6.5 Lymph # (Auto) 2.5 Frio # (Auto) 0.9 Eos # (Auto) 0.3 Baso # (Auto) 0.1 CBC Comment DIFF FINAL Sodium 137 Potassium 5.0 Chloride 102 Carbon Dioxide 25.2 Anion Gap 10 BUN 17 Creatinine 0.92 Estimated GFR 59 L POC Glucose Random Glucose 173 H Calcium 9.5 Magnesium Total Bilirubin 0.3 AST 14 L ALT 19 Alkaline Phosphatase 74 Total Creatine Kinase 50 Troponin I LESS THAN 0.02 L Total Protein 7.0 Albumin 2.6 L Lipase Nasal Screen MRSA (PCR) 05/13/18 05/13/18 05/13/18 21:10 17:00 06:36 WBC RBC Hgb Hct MCV MCH MCHC RDW Plt Count MPV Neut % (Auto) Lymph % (Auto) Frio % (Auto) Eos % (Auto) Baso % (Auto) Neut # (Auto) Lymph # (Auto) Frio # (Auto) Eos # (Auto) Baso # (Auto) CBC Comment Sodium Potassium Chloride Carbon Dioxide Anion Gap BUN Creatinine Estimated GFR POC Glucose Random Glucose Calcium Magnesium Total Bilirubin AST ALT Alkaline Phosphatase Total Creatine Kinase 49 Troponin I LESS THAN 0.02 L Total Protein Albumin Lipase Cancelled Nasal Screen MRSA (PCR) MRSA DETECTED 05/13/18 05/13/18 06:36 06:36 WBC RBC Hgb Hct MCV MCH MCHC RDW Plt Count MPV Neut % (Auto) Lymph % (Auto) Frio % (Auto) Eos % (Auto) Baso % (Auto) Neut # (Auto) Lymph # (Auto) Frio # (Auto) Eos # (Auto) Baso # (Auto) CBC Comment Sodium 140 Potassium 4.1 Chloride 106 Carbon Dioxide 24.3 Anion Gap 10 BUN 16 Creatinine 0.93 Estimated GFR 58 L POC Glucose Random Glucose 153 H Calcium 8.5 Magnesium 2.1 Total Bilirubin AST ALT Alkaline Phosphatase Total Creatine Kinase Cancelled 49 Troponin I Cancelled LESS THAN 0.02 L Total Protein Albumin Lipase 119 Nasal Screen MRSA (PCR) Discharge Plan - Discharge Disposition Patient Disposition: 03 Discharge to SNF - Discharge Condition Condition: Stable - Discharge Order Discharge Orders: Discharge Order (Routine); Ordered 05/17/18 Ordered By: Jaun Connell - Discharge Details Anticipated Discharge Date/Time: 05/17/18 12:46 - Physicians Team Primary Care Provider: UNKNOWN, Attending Provider: Jaun Connell Other Providers: Izabel Chau MD ; Kathia Fonseca MD ; Dominick Terrazas MD - Rxs /Orders / Referrals /Forms Prescriptions: New digoxin 125 mcg Tablet 0.125 mcg PO DAILY Qty: 30 RF: 0 diltiazem HCl [Cardizem CD] 180 mg Capsule,Extended Release 24hr 180 mg PO DAILY Qty: 30 RF: 0 glucagon (human recombinant) [GlucaGen Diagnostic Kit] 1 mg/mL Recon Soln 1 mg OTHER PRN PRN (Reason: for Hypoglycemia Protocol) RF: 0 insulin NPH isoph U-100 human [Novolin N NPH U-100 Insulin] 100 unit/mL Suspension 14 units Sub-Q BID@0800,1700 RF: 0 insulin regular human [Novolin R Regular U-100 Insuln] 100 unit/mL Solution 10 units Sub-Q BID@0800,1700 RF: 0 oxycodone 10 mg Tablet 10 mg PO Q6HR PRN (Reason: Pain) Qty: 7 RF: 0 oxycodone [OxyContin] 10 mg Tablet,Oral Only,Ext.Rel.12 Hr 10 mg PO Q12H Qty: 7 RF: 0 pravastatin 20 mg Tablet 20 mg PO HS Qty: 30 RF: 0 Continue apixaban [Eliquis] 5 mg Tablet 5 mg PO BID aspirin 81 mg Tablet,Chewable 81 mg PO DAILY cholecalciferol (vitamin D3) 2,000 unit Capsule 2,000 unit PO DAILY clotrimazole 1 % Solution 1 applic TOPICAL BID levothyroxine [Synthroid] 125 mcg Tablet 125 mcg PO DAILY Discontinued bisacodyl [Dulcolax (bisacodyl)] 10 mg Suppository [address] DAILY PRN (Reason: Constipation) bisacodyl [Fleet Bisacodyl] 10 mg/30 mL Enema [address] DAILY PRN (Reason: Constipation) exenatide microspheres [Bydureon] 2 mg Suspension,Extended Rel Recon 2 mg SUB-Q Q7D insulin lispro protamin-lispro [Humalog Mix 50-50 Insuln U-100] 100 unit/mL ( 50-50) Suspension 40 unit SUB-Q BIDAC oxycodone 10 mg Tablet 10 mg PO Q6H PRN (Reason: Pain) oxycodone 10 mg Tablet 10 mg PO Q4H PRN (Reason: Pain) oxycodone [OxyContin] 10 mg Tablet,Oral Only,Ext.Rel.12 Hr 10 mg PO Q8H Referrals: Zeb Anand MD [Family Provider] - See Instructions UNKNOWN, [Primary Care Provider] - See Instructions
== END 2018-05-17 21:26 ==
LOC: UNDODISIN → N04 19:00
PROVIDERS: ADMIT Hospitalist; ATTEND Hospitalist